=== PATIENT | male | born 1970 | race Caucasian/White ===

== ENCOUNTER 2017-02-12 21:25 | Emergency (ER) | payer OTHER ==
[~2017-02-12] VITALS: Ht 182.9 cm; Wt 120.5 kg
[~2017-02-12 21:25] MED LIST: ACP20 PO; CTP/1 PO; FLX10 PO; GABA-113 PO; GLC500 PO; RISP-32 PO; RISP1TAB68 PO
[2017-02-12 21:27] VITALS: TEMP 37.2; Ht 182.9 cm; Wt 120.5 kg
[2017-02-12 21:50] VITALS: O2SAT 97
[2017-02-12] MEDS ORDERED: KETOROLAC TROMETHAMINE 30 MG/ML VIAL IV STA (21:59)
[2017-02-12] MEDS ORDERED: SODIUM CHLORIDE 0.9% 1000ML 1,000 ML IV ONE (22:00)
[2017-02-12 22:07] LABS: BASO % 0.2 %; BASO ABS # 0.02 K/uL (0-0.2); COMPLETE YES; EOS % 4.4 %; HEMATOCRIT 43.8 % (42-52); IG% 0.1 %; LYMPH % 38.2 %; MEAN CORPUSCULAR HEMOGLOBIN 34.2 pg (25-34); MEAN CORPUSCULAR HGB CONC 34.9 g/dl (32-36); MEAN PLATELET VOLUME 10.2 fL (7.4-10.4); MONO % 6.4 %; NEUT % 50.7 %; PLATELET COUNT 190 K/uL (130-400); RED BLOOD COUNT 4.47 M/uL (4.7-6.1); WHITE BLOOD COUNT 8.38 K/uL (4.8-10.8)
[2017-02-12 22:19] LABS: PROTHROMBIN TIME (PATIENT) 10.7 SECONDS (9.0-12.0)
[2017-02-12 22:25] LABS: BUN/CREATININE RATIO 11.7 (10-20); CREATININE 0.94 mg/dl (0.60-1.40); MAGNESIUM 2.3 mg/dl (1.8-2.4); POTASSIUM 4.3 mmol/L (3.5-5.1)
[2017-02-12 22:35] LABS: ALB/GLOB RATIO 1.1 (0.9-2); THYROID STIMULATING HORMONE 2.69 uIu/ml (0.300-4.500)
[2017-02-12 22:46] LABS: CALCIUM 8.7 mg/dl (8.5-10.1)
--- NOTE | 2017-02-12 23:04 | DIAGNOSTIC IMAGING REPORT ---
CHEST 2 VIEWS ROUTINE CLINICAL HISTORY: chest pain dyspnea COMPARISON STUDY: 04/01/2012 FINDINGS: The bones soft tissues and hemidiaphragms are normal. The cardiomediastinal silhouette is normal. The lungs are clear. The pulmonary vasculature is normal. IMPRESSION: Negative chest. Electronically signed by: Shabbir Almaraz M.D. 02/12/2017 11:02 PM Dictated Date/Time: 02/12/2017 11:02 PM
[2017-02-12] MEDS ORDERED: REPA1TAB40 PO (23:06)
[2017-02-12] MEDS ORDERED: TRMCR130WC TOP (23:06)
[2017-02-12] MEDS ORDERED: ATOR10TA82 PO (23:06)
[2017-02-12] MEDS ORDERED: LOSA50TA6 PO (23:06)
[2017-02-12 23:31] LABS: URINE APPEARANCE CLEAR (CLEAR); URINE BILIRUBIN NEG (NEG); URINE COLOR YELLOW; URINE NITRITE NEG (NEG); URINE SPECIFIC GRAVITY 1.017 (1.000-1.030); UROBILINOGEN NEG (NEG); ZZUR CULT IF INDIC CLEAN CATCH NO
[2017-02-12 23:37] LABS: MANUAL MICROSCOPIC REQUIRED? NO; REVIEW REQ? NO
[2017-02-12 23:51] LABS: BENZODIAZEPINE, URINE NEG (NEG); COCAINE,URINE NEG (NEG); PHENCYCLIDINE, URINE NEG (NEG)
[2017-02-13 01:00] VITALS: BP 133/85; PULSE 60; O2SAT 97
--- NOTE | 2017-02-13 04:53 | EMERGENCY ROOM VISIT NOTE ---
History First contact with patient: 21:48 Chief Complaint: CHEST PAIN Stated Complaint: CHEST PAIN, HEADACHE, PAIN RADIATING IN LEFT ARM Nursing Triage Summary: see triage note History of Present Illness The patient is a 46 year old male who presents to the Emergency Room with complaints of left sided head pain and left-sided chest pain for the past 8 or 9 hours. The patient has had symptoms like this in the past, and had an outpatient exercise stress test one week ago that was normal. The patient has not taken anything today for his symptoms. He has had headaches in the past, but this feels different from normal. He has not taken anything over-the- counter for his symptoms. He is without shortness of breath or dyspnea on exertion. He took a nitroglycerin and aspirin at home without any relief of his symptoms. He does not have abdominal pain, lightheadedness, or dizziness. He does have some intermittent pain that radiates down his left arm, but does have a history of degenerative disc disease in his neck, and states this may be from his neck. He rates his current pain a 1/10 with episodes of stabbing pain that he rates a 9/10. Review of Systems More than 10 systems were reviewed and otherwise negative with the exception of history of present illness. Past Medical/Surgical History Medical Problems: (1) Mcwilliams's esophagus (2) Chronic back pain (3) Dyslipidemia (4) Gastroesophageal reflux disease (5) Impaired glucose tolerance (6) s/p tonsillectomy Family History No pertinent family history Social History Smoking Status: Never Smoker Drug Use: heroin Current/Historical Medications Scheduled Atorvastatin (Lipitor), 10 MG PO DAILY Losartan Potassium (Cozaar), 50 MG PO DAILY Repaglinide (Prandin), 1 MG PO AC Triamcinolone Acet (Aristocort 0.1%), 1 APPLN TOP BID Allergies Coded Allergies: Ranitidine (Verified Allergy, Unknown, 12/16/11) Tramadol (Unverified Allergy, HIVES, 03/12/12) Physical Exam Vital Signs Date Time Temp Pulse Resp B/P Pulse Ox O2 Delivery O2 Flow Rate FiO2 02/13/17 01:00 60 16 133/85 97 02/13/17 00:40 55 22 94 02/13/17 00:31 128/78 02/13/17 00:10 57 20 97 02/13/17 00:05 55 18 95 02/13/17 00:01 135/86 02/12/17 23:05 69 19 02/12/17 23:01 130/81 02/12/17 22:35 61 17 96 02/12/17 22:31 62 18 141/88 97 Room Air 02/12/17 21:50 97 Room Air 02/12/17 21:45 70 21 97 02/12/17 21:42 71 02/12/17 21:27 37.2 68 20 174/93 97 Room Air Pain Rating (0-10): 0 Physical Exam VITALS: Vitals are noted on the nurse's note and reviewed by myself. Vital signs stable. GENERAL: Well-developed, well-nourished, white male, who is in no acute distress and resting comfortably. Patient is cooperative with the examination. HEAD: Normocephalic atraumatic. EARS: External ear normal. External auditory canals clear, tympanic membranes pearly sampson without erythema or effusion bilaterally. EYES: Pupils equal round and reactive to light and accommodation. Conjunctivae without injection, sclerae without icterus. Extraocular movements intact. NOSE: Patent, turbinates without inflammation or discharge. MOUTH: Mucous membranes moist. Tonsils are not enlarged. Pharynx without erythema, blood, or exudate. Uvula midline. Airway patent. NECK: Supple without nuchal rigidity. No lymphadenopathy. No thyromegaly. Cervical spine is nontender. HEART: Regular rate and rhythm without murmurs gallops or rubs. LUNGS: Clear to auscultation bilaterally without wheezes, rales or rhonchi. No retractions or accessory muscle use. ABDOMEN: Positive normal bowel sounds x 4. Soft, nontender, without masses or organomegaly. No guarding or rebound tenderness. MUSCULOSKELETAL: No muscle atrophy, erythema, or edema noted. Full range of motion without joint tenderness in all extremities. No tenderness to palpation. Normal gait. Strength 5/5 throughout. NEURO: Patient was alert and oriented to person place and time. CN II through XII grossly intact. Medical Decision & Procedures ER Provider Diagnostic Interpretation: Preliminary Findings Only See Final Report For Complete Findings CT HEAD: No acute intracranial finding. 1.2 cm hypodensity in region of right hippocampus is similar to prior CT 11/11/07 , likely representing a cyst. Scattered white matter hypodensities, nonspecific, but overall similar to prior MRI dated 03/26/12, allowing for differences in modality. CHEST 2 VIEWS ROUTINE CLINICAL HISTORY: chest pain dyspnea COMPARISON STUDY: 04/01/2012 FINDINGS: The bones soft tissues and hemidiaphragms are normal. The cardiomediastinal silhouette is normal. The lungs are clear. The pulmonary vasculature is normal. IMPRESSION: Negative chest. Laboratory Results 02/12/17 22:00 Red Blood Count 4.47, Mean Corpuscular Volume 98.0, Mean Corpuscular Hemoglobin 34.2, Mean Corpuscular Hemoglobin Concent 34.9, Mean Platelet Volume 10.2, Neutrophils (%) (Auto) 50.7, Lymphocytes (%) (Auto) 38.2, Monocytes (%) (Auto) 6.4, Eosinophils (%) (Auto) 4.4, Basophils (%) (Auto) 0.2, Neutrophils # (Auto) 4.24, Lymphocytes # (Auto) 3.20, Monocytes # (Auto) 0.54, Eosinophils # (Auto) 0.37, Basophils # (Auto) 0.02 02/12/17 22:00 Test 02/12/17 22:00 02/12/17 23:15 02/12/17 23:20 White Blood Count 8.38 K/uL (4.8-10.8) Red Blood Count 4.47 M/uL (4.7-6.1) Hemoglobin 15.3 g/dL (14.0-18.0) Hematocrit 43.8 % (42-52) Mean Corpuscular Volume 98.0 fL (80-100) Mean Corpuscular Hemoglobin 34.2 pg (25-34) Mean Corpuscular Hemoglobin Concent 34.9 g/dl (32-36) Platelet Count 190 K/uL (130-400) Mean Platelet Volume 10.2 fL (7.4-10.4) Neutrophils (%) (Auto) 50.7 % Lymphocytes (%) (Auto) 38.2 % Monocytes (%) (Auto) 6.4 % Eosinophils (%) (Auto) 4.4 % Basophils (%) (Auto) 0.2 % Neutrophils # (Auto) 4.24 K/uL (1.4-6.5) Lymphocytes # (Auto) 3.20 K/uL (1.2-3.4) Monocytes # (Auto) 0.54 K/uL (0.11-0.59) Eosinophils # (Auto) 0.37 K/uL (0-0.5) Basophils # (Auto) 0.02 K/uL (0-0.2) RDW Standard Deviation 43.9 fL (36.4-46.3) RDW Coefficient of Variation 12.2 % (11.5-14.5) Immature Granulocyte % (Auto) 0.1 % Immature Granulocyte # (Auto) 0.01 K/uL (0.00-0.02) Prothrombin Time 10.7 SECONDS (9.0-12.0) Prothromb Time International Ratio 1.0 (0.9-1.1) Activated Partial Thromboplast Time 25.0 SECONDS (21.0-31.0) Partial Thromboplastin Ratio 1.0 Anion Gap 3.0 mmol/L (3-11) Est Creatinine Clear Calc Drug Dose 133.0 ml/min Estimated GFR () 113.0 Estimated GFR (Non- 97.5 BUN/Creatinine Ratio 11.7 (10-20) Calcium Level 8.7 mg/dl (8.5-10.1) Magnesium Level 2.3 mg/dl (1.8-2.4) Total Bilirubin 0.4 mg/dl (0.2-1) Aspartate Amino Transf (AST/SGOT) 52 U/L (15-37) Alanine Aminotransferase (ALT/SGPT) 70 U/L (12-78) Alkaline Phosphatase 126 U/L (45-117) Total Protein 7.4 gm/dl (6.4-8.2) Albumin 3.8 gm/dl (3.4-5.0) Globulin 3.6 gm/dl (2.5-4.0) Albumin/Globulin Ratio 1.1 (0.9-2) Lipase 219 U/L (73-393) Thyroid Stimulating Hormone (TSH) 2.690 uIu/ml (0.300-4.500) Urine Color YELLOW Urine Appearance CLEAR (CLEAR) Urine pH 5.0 (4.5-7.5) Urine Specific [place] 1.017 (1.000-1.030) Urine Protein NEG (NEG) Urine Glucose (UA) 3+ (NEG) Urine Ketones NEG (NEG) Urine Occult Blood NEG (NEG) Urine Nitrite NEG (NEG) Urine Bilirubin NEG (NEG) Urine Urobilinogen NEG (NEG) Urine Leukocyte Esterase NEG (NEG) Urine Opiates Screen NEG (NEG) Urine Methadone, Qualitative NEG (NEG) Urine Barbiturates NEG (NEG) Urine Phencyclidine (PCP) Level NEG (NEG) Ur Amphetamine/Methamphetamine NEG (NEG) MDMA (Ecstasy) Screen NEG (NEG) Urine Benzodiazepines Screen NEG (NEG) Urine Cocaine Metabolite NEG (NEG) Urine Marijuana (THC) NEG (NEG) Bedside Troponin I 0.000 ng/ml (0-0.045) Medications Administered Medications (Trade) Dose Ordered Sig/Kranthi Route Start Time Stop Time Status Last Admin Dose Admin Sodium Chloride (Nss 1000ml) 1,000 ml @ 999 mls/hr Q1H1M ONCE IV 02/12/17 22:00 02/12/17 23:00 DC 02/12/17 22:24 999 MLS/HR Ketorolac Tromethamine (Toradol Inj) 30 mg NOW STAT IV 02/12/17 21:59 02/12/17 22:01 DC 02/12/17 22:24 30 MG ED Course Physical exam and history were performed. Nursing notes and EMR were reviewed. Patient appears to have left-sided head pain and left-sided chest pain for the past several hours. The patient does not appear toxic on examination. EKG does not show acute ST elevation and was normal sinus rhythm. IV access was established and labs were obtained. The patient was hydrated with normal saline and given IV Toradol for comfort. The patient's blood work is as above and was reviewed. He does not have his inability elevated white blood cell count, gross anemia, bandemia, or significant electrolyte imbalance. Lipase and transaminases are nondiagnostic. Troponin x2 and d-dimer 1 are both negative. Chest x-ray is without significant acute findings. Because of his atypical head pain symptoms I did elect to perform CT scan of his head, which was also without acute intracranial finding. The patient was reevaluated multiple times throughout the course of his stay and did have improvement of his discomfort after hydration and Toradol. I suspect the patient's discomfort is musculoskeletal in nature, as he does have a history of cervical disc disease. He does not appear to have an acute cardiopulmonary event, and is overall felt to be stable for discharge home. He will need close follow-up by his primary care physician and was invited back to the emergency department with any new, worsening, or concerning symptoms. The chart was completed utilizing [employer] Speech Voice Recognition Software. Grammatical errors, random word insertions, pronoun errors, and incomplete sentences are an occasional consequence of this system due to software limitations, ambient noise, and hardware issues. Any formal questions or concerns about the content, text, or information contained within the body of this dictation should be directly addressed to the provider for clarification. . Medical Decision Differential diagnosis includes, but is not limited to: Myocardial infarction, dysrhythmia, pericarditis, pneumothorax, aortic aneurysm/dissection, DVT/PE, anxiety, GERD, PUD, electrolyte imbalance, thyroid disorder, pneumonia, bronchitis, pancreatitis, and others Impression Primary Impression: Chest pain of unknown etiology Additional Impression: Head pain Departure Information Dispostion Home / Self-Care Condition [employer]IR Forms HOME CARE DOCUMENTATION FORM, IMPORTANT VISIT INFORMATION Patient Instructions [facility] Additional Instructions You were seen and evaluated today on an emergency basis only. This is not a substitute for, or an effort to provide, complete comprehensive medical care. It is not possible to recognize and treat all injuries or illnesses in a single emergency department visit. For this reason it is recommended that you followup with your primary care physician next week as scheduled for ongoing care and evaluation. Continue your current medications. For baseline pain relief you may alternate ibuprofen and acetaminophen every 4 hours for pain control. Take 600 mg ibuprofen (Advil) and then 4 hours later take 1000 mg acetaminophen (Tylenol). Do not take more than 3000 mg acetaminophen in a single day. Drink plenty of fluids and remain well hydrated. You are welcome to return to the emergency department anytime with new, worsening, or concerning symptoms. Problem Qualifiers
--- NOTE | 2017-02-13 06:50 | DIAGNOSTIC IMAGING REPORT ---
CT OF THE HEAD WITHOUT CONTRAST CLINICAL HISTORY: Left sided head pain. COMPARISON STUDY: Head CT November 11, 2007 and MRI of the brain March 26, 2012. CT DOSE: 537.48 mGy.cm TECHNIQUE: Helical axial images of the head were obtained without IV contrast. Automated exposure control was utilized for the study. FINDINGS: No acute intracranial hemorrhage, midline shift or mass effect is present. Ventricular system is normal. Basilar cisterns are patent. There are no extra-axial collections. Scott-white differentiation is maintained. There are no findings to suggest acute dural sinus thrombosis or acute territorial infarct. A 1.4 cm CSF attenuation density within the medial right temporal lobe is unchanged since earlier exams. This likely reflects a cyst. No calvarial abnormalities are present. Visualized portions of the sinuses and mastoid air cells are clear. IMPRESSION: No acute intracranial findings. No change since prior exam. Electronically signed by: Siva Haynes M.D. 02/13/2017 6:49 AM Dictated Date/Time: 02/13/2017 6:47 AM
== END 2017-02-13 01:00 | disposition home or self-care (01) ==
LOC: C.EDB 21:26 → C.EDA 02-13 01:00
DX: R07.9 Chest pain, unspecified (principal); R51 Headache; K22.70 Barrett's esophagus without dysplasia; E78.5 Hyperlipidemia, unspecified; K21.9 Gastro-esophageal reflux disease without esophagitis; R73.02 Impaired glucose tolerance (oral); M54.9 Dorsalgia, unspecified; G89.29 Other chronic pain; F11.90 Opioid use, unspecified, uncomplicated; Z79.899 Other long term (current) drug therapy

== ENCOUNTER 2017-08-20 17:24 | Emergency (ER) | payer OTHER ==
[~2017-08-20] VITALS: Ht 182.9 cm; Wt 120.0 kg
[~2017-08-20 17:24] MED LIST changes: -ACP20 PO; +ATOR10TA82 PO; -CTP/1 PO; -FLX10 PO; -GABA-113 PO; -GLC500 PO; +LOSA50TA6 PO; +REPA1TAB40 PO; -RISP-32 PO; -RISP1TAB68 PO; +TRMCR130WC TOP
[2017-08-20 17:27] VITALS: TEMP 37.1; Ht 182.9 cm; Wt 120.0 kg
[2017-08-20] MEDS ORDERED: METOCLOPRAMIDE HCL INJ 5 MG/ML 2 ML VIAL IV STA (18:43)
[2017-08-20] MEDS ORDERED: ACETAMINOPHEN 500 MG TAB PO STA (18:43)
[2017-08-20] MEDS ORDERED: DiphenhydrAMINE HCL 50 MG/ML VIAL IV STA (18:43)
--- NOTE | 2017-08-20 19:09 | DIAGNOSTIC IMAGING REPORT ---
CHEST ONE VIEW PORTABLE CLINICAL HISTORY: 46 years-old Male presenting with ABDOMINAL PAIN/GI. TECHNIQUE: Portable upright AP view of the chest was obtained. COMPARISON: 02/12/2017. FINDINGS: Cardiomediastinal silhouette normal. Lungs and pleural spaces clear. Osseous structures normal. Upper abdomen normal. IMPRESSION: 1. No acute cardiopulmonary disease. Electronically signed by: Danilo Maier M.D. 08/20/2017 7:08 PM Dictated Date/Time: 08/20/2017 7:07 PM
[2017-08-20 19:25] LABS: BASO % 0.3 %; BASO ABS # 0.03 K/uL (0-0.2); COMPLETE YES; EOS % 3.9 %; HEMATOCRIT 44.7 % (42-52); IG% 0.5 %; LYMPH % 32.1 %; LYMPH ABS # 3.02 K/uL (1.2-3.4); MEAN CELL VOLUME 94.9 fL (80-100); MEAN CORPUSCULAR HEMOGLOBIN 34.8 pg (25-34); MEAN CORPUSCULAR HGB CONC 36.7 g/dl (32-36); MEAN PLATELET VOLUME 10.4 fL (7.4-10.4); MONO % 6.5 %; NEUT % 56.7 %; PLATELET COUNT 197 K/uL (130-400); RED BLOOD COUNT 4.71 M/uL (4.7-6.1); WHITE BLOOD COUNT 9.42 K/uL (4.8-10.8)
--- NOTE | 2017-08-20 19:39 | EMERGENCY ROOM VISIT NOTE ---
History Report prepared by Lorelei: Azucena Chapa Under the Supervision of: Dr. Mikel Rosales M.D. First contact with patient: 18:06 Chief Complaint: DIZZY Stated Complaint: DIZZINESS, LIGHT HEADED, PAIN IN HEAD AND NECK Nursing Triage Summary: Dizzy and lightheaded since , found lump in his neck on his left side "it has a pulse in it". Getting headaches and has burning in left arm. History of Present Illness The patient is a 46 year old white male with a past medical history of hypertension, appendectomy, high cholesterol, arachnoid cysts, and neck surgery who presents to the ED with a cc of a lump in his neck beginning 3 days ago. The patient states that he felt a lump in the left side of his neck that has a pulse and is burning. He notes that he has been feeling dizzy. Positive left arm burning and headaches. Negative cough, sore throat, chills, fever, leg pain , leg swelling. Source of History: patient Onset: 3 days ago Position: neck Quality: other (lump) Timing: constant Associated Symptoms: + headache, No fevers, No chills, No sorethroat, No cough Note: Pt has dizziness and left arm burning. Denies leg pain and swelling. Review of Systems See HPI for pertinent positives and negatives. A total of ten systems were reviewed and were otherwise negative. Past Medical & Surgical Medical Problems: (1) Mcwilliams's esophagus (2) Chronic back pain (3) Dyslipidemia (4) Gastroesophageal reflux disease (5) Impaired glucose tolerance (6) s/p tonsillectomy Family History No pertinent family history stated. Social History Smoking Status: Current Every Day Smoker Drug Use: heroin Marital Status: single Occupation Status: employed Current/Historical Medications No Active Prescriptions or Reported Meds Allergies Coded Allergies: Ranitidine (Verified Allergy, Unknown, 12/16/11) Tramadol (Unverified Allergy, HIVES, 03/12/12) Physical Exam Vital Signs Date Time Temp Pulse Resp B/P (MAP) Pulse Ox O2 Delivery O2 Flow Rate FiO2 08/20/17 20:40 88 16 137/76 98 Room Air 08/20/17 19:17 68 16 141/81 98 Room Air 08/20/17 18:02 84 08/20/17 18:02 81 16 167/101 88 178/109 91 167/111 08/20/17 17:27 37.1 85 18 164/114 97 Room Air Physical Exam GENERAL: Awake, alert, well-appearing, NAD HENT: Normocephalic, atraumatic. Redness and exudate in right posterior oropharynx, no swelling or deviation. EYES: Normal conjunctiva. Sclera non-icteric. NECK: Supple. No nuchal rigidity. FROM. He has a palpable nodule in the left lateral neck, no erythema, no calor. No stridor RESPIRATORY: CTAB, no rhonchi, wheezing, crackles CARDIAC: RRR, no MRG ABDOMEN: Soft, NTND, BS+ MSK: No chest wall TTP, no LE edema NEURO: GCS 15, CN 2-12 intact, moves all 4s on command SKIN: No rash or jaundice noted. Medical Decision & Procedures ER Provider Diagnostic Interpretation: Radiology results as stated below per my review and radiologist interpretation: HEAD WITHOUT CONTRAST (CT) FINDINGS: Interior Design Instructor topogram: Unremarkable. Ventricles and sulci normal in size. 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 Brain parenchyma normal in appearance with preserved sampson-white differentiation. No mass effect or midline shift. No hemorrhage or acute territorial infarct. No extra-axial fluid collection. Paranasal sinuses and mastoid air cells clear. Calvarium intact. IMPRESSION: 1. No acute intracranial abnormality. Electronically signed by: Danilo Maier M.D. 08/20/2017 7:49 PM Dictated Date/Time: 08/20/2017 7:46 PM CHEST ONE VIEW PORTABLE FINDINGS: Cardiomediastinal silhouette normal. Lungs and pleural spaces clear. Osseous structures normal. Upper abdomen normal. IMPRESSION: 1. No acute cardiopulmonary disease. Electronically signed by: Danilo Maier M.D. 08/20/2017 7:08 PM Dictated Date/Time: 08/20/2017 7:07 PM Laboratory Results 08/20/17 18:58 Red Blood Count 4.71, Mean Corpuscular Volume 94.9, Mean Corpuscular Hemoglobin 34.8, Mean Corpuscular Hemoglobin Concent 36.7, Mean Platelet Volume 10.4, Neutrophils (%) (Auto) 56.7, Lymphocytes (%) (Auto) 32.1, Monocytes (%) (Auto) 6.5, Eosinophils (%) (Auto) 3.9, Basophils (%) (Auto) 0.3, Neutrophils # (Auto) 5.34, Lymphocytes # (Auto) 3.02, Monocytes # (Auto) 0.61, Eosinophils # (Auto) 0.37, Basophils # (Auto) 0.03 08/20/17 18:58 Test 08/20/17 18:58 08/20/17 19:54 White Blood Count 9.42 K/uL (4.8-10.8) Red Blood Count 4.71 M/uL (4.7-6.1) Hemoglobin 16.4 g/dL (14.0-18.0) Hematocrit 44.7 % (42-52) Mean Corpuscular Volume 94.9 fL (80-100) Mean Corpuscular Hemoglobin 34.8 pg (25-34) Mean Corpuscular Hemoglobin Concent 36.7 g/dl (32-36) Platelet Count 197 K/uL (130-400) Mean Platelet Volume 10.4 fL (7.4-10.4) Neutrophils (%) (Auto) 56.7 % Lymphocytes (%) (Auto) 32.1 % Monocytes (%) (Auto) 6.5 % Eosinophils (%) (Auto) 3.9 % Basophils (%) (Auto) 0.3 % Neutrophils # (Auto) 5.34 K/uL (1.4-6.5) Lymphocytes # (Auto) 3.02 K/uL (1.2-3.4) Monocytes # (Auto) 0.61 K/uL (0.11-0.59) Eosinophils # (Auto) 0.37 K/uL (0-0.5) Basophils # (Auto) 0.03 K/uL (0-0.2) RDW Standard Deviation 41.4 fL (36.4-46.3) RDW Coefficient of Variation 12.0 % (11.5-14.5) Immature Granulocyte % (Auto) 0.5 % Immature Granulocyte # (Auto) 0.05 K/uL (0.00-0.02) Anion Gap 5.0 mmol/L (3-11) Est Creatinine Clear Calc Drug Dose 156.0 ml/min Estimated GFR () 125.0 Estimated GFR (Non- 107.9 BUN/Creatinine Ratio 11.2 (10-20) Calcium Level 8.8 mg/dl (8.5-10.1) Total Bilirubin 0.5 mg/dl (0.2-1) Direct Bilirubin 0.1 mg/dl (0-0.2) Aspartate Amino Transf (AST/SGOT) 60 U/L (15-37) Alanine Aminotransferase (ALT/SGPT) 73 U/L (12-78) Alkaline Phosphatase 151 U/L (45-117) Troponin I < 0.015 ng/ml (0-0.045) Total Protein 7.8 gm/dl (6.4-8.2) Albumin 4.0 gm/dl (3.4-5.0) Lipase 257 U/L (73-393) Urine Color YELLOW Urine Appearance CLEAR (CLEAR) Urine pH 5.0 (4.5-7.5) Urine Specific [place] 1.016 (1.000-1.030) Urine Protein NEG (NEG) Urine Glucose (UA) 2+ (NEG) Urine Ketones NEG (NEG) Urine Occult Blood NEG (NEG) Urine Nitrite NEG (NEG) Urine Bilirubin NEG (NEG) Urine Urobilinogen NEG (NEG) Urine Leukocyte Esterase NEG (NEG) Laboratory results reviewed by me Medications Administered Medications (Trade) Dose Ordered Sig/Kranthi Route Start Time Stop Time Status Last Admin Dose Admin Acetaminophen (Tylenol Tab) 1,000 mg NOW STAT PO 08/20/17 18:43 08/20/17 18:45 DC 08/20/17 19:22 1,000 MG Diphenhydramine HCl (Benadryl Inj) 25 mg NOW STAT IV 08/20/17 18:43 08/20/17 18:45 DC 08/20/17 19:22 25 MG Metoclopramide HCl (Reglan Inj) 10 mg NOW STAT IV 08/20/17 18:43 08/20/17 18:46 DC 08/20/17 19:22 10 MG ECG Indication: other (dizzy) Rate (beats per minute): 83 Rhythm: normal sinus Findings: other (normal intervals, normal axis, no STS or TWI) ED Course 1805: The patient was evaluated in room C4. A complete history and physical exam was performed. 2002: I reevaluated and updated the patient. I performed an ultrasound. 2024: I reevaluated the patient. Discussed results and discharge instructions: He verbalized understanding and agreement. The patient is ready for discharge. Medical Decision Triage Nursing notes reviewed. The patient's presentation and history were concerning for lymphadenitis, mono, flu, reactive lymphadenopathy, ICH, mass, dehydration. The patient is a 46 year old white male with a past medical history of hypertension, appendectomy, high cholesterol, arachnoid cysts, and neck surgery who presents to the ED with a cc of a lump in his neck beginning 3 days ago Patient was seen and evaluated at the bedside. Patient did present with multiple complaints. Patient's history was concerned about a lump in his left neck. Patient states he had no shortness of breath. Patient also was complaining of some mild headache and dizziness. Patient was concerned as he had prior history of arachnoid cysts is most recent MRI being completed 5 years prior. On exam the patient had a normal neurologic exam. Patient's dizziness was described as lightheadedness and he typically stated this was positional as he would be going from a laying down to a seated position or seated to standing position. Patient denied any syncope. Patient was given medications for his headache did have a CT scan of the head as well as a chest x-ray was performed along with blood work. Patient's blood work was fairly unremarkable with the exception of some mildly elevated blood glucose and AST. UA neg for blood or infection. Patient denies any abdominal pain. Patient did have a history of smoking was given counseling on smoking cessation. I did do a bedside ultrasound of this small bump in the left neck. This appeared to be a lymph node. Did not have enhancement consistent with fluid or air. No overlying erythema or callor. No prior history of cancers. Discussed that the patient could wash in the be related to some URI-type symptoms. Patient's headache had improved. Patient was able tolerate by mouth. Patient was deemed suitable for outpatient follow-up and treatment. Patient was given strict follow-up, discharge, and return precautions. All questions were answered. Patient was deemed suitable for outpatient follow-up at this time. Patient agreed with the plan of care and was safely discharged home. Impression Primary Impression: Lightheaded Additional Impressions: Headache Lymphadenitis Encounter for smoking cessation counseling Scribe Attestation The scribe's documentation has been prepared under my direction and personally reviewed by me in its entirety. I confirm that the note above accurately reflects all work, treatment, procedures, and medical decision making performed by me. Departure Information Dispostion Home / Self-Care Prescriptions No Active Prescriptions or Reported Meds Referrals Chantal Barton M.D. (PCP) Patient Instructions ED Dizziness [facility], Headache Pain, My [facility] Additional Instructions Please return to the emergency department if you have worsening or recurrent symptoms not amenable to at-home treatment. Please call for a follow-up appointment with her primary care physician. Please take your medications as prescribed. If you have other concerns and/or complaints please feel free to also call your primary care physician's office or return the ED for further evaluation, management, and treatment. You may take 600 mg Ibuprofen every 6 hours as needed for pain with food for no more than 2 consecutive days. You may take tylenol 1000 mg every 6 hours as needed for pain. You may take motrin and tylenol separately or at the same time. Take your medications as prescribed. You have been examined and treated today on an emergency basis only. This is not a substitute for, or an effort to provide, complete comprehensive medical care. It is impossible to recognize and treat all injuries or illnesses in a single emergency department visit. It is therefore important that you follow up closely with [facility], your PCP, and/or your specialist(s). Call as soon as possible for an appointment. Thank you for your time and consideration. I look forward to speaking with you again soon. Please don't hesitate to call us if you have any questions. Problem Qualifiers Additional Impressions: Headache Headache type: unspecified Headache chronicity pattern: acute headache Intractability: not intractable Qualified Codes: R51 - Headache
[2017-08-20 19:47] LABS: ALT/SGPT 73 U/L (12-78); AST/SGOT 60 U/L (15-37); BLOOD UREA NITROGEN 9 mg/dl (7-18); BUN/CREATININE RATIO 11.2 (10-20); CALCIUM 8.8 mg/dl (8.5-10.1); CARBON DIOXIDE 30 mmol/L (21-32); CHLORIDE 100 mmol/L (98-107); GLUCOSE 211 mg/dl (70-99); POTASSIUM 3.5 mmol/L (3.5-5.1); SODIUM 135 mmol/L (136-145)
--- NOTE | 2017-08-20 19:50 | DIAGNOSTIC IMAGING REPORT ---
HEAD WITHOUT CONTRAST (CT) CLINICAL HISTORY: 46 years-old Male presenting with ?h/o arachnoid cysts, dizzy, lightheaded. TECHNIQUE: Multidetector CT imaging of the head was performed without the use of intravenous contrast. IV contrast: None. A dose lowering technique was used consistent with the principles of ALARA (as low as reasonably achievable). COMPARISON: 02/12/2017. CT DOSE (mGy.cm): The estimated cumulative dose is 700.35 mGycm. FINDINGS: Shucker topogram: Unremarkable. Ventricles and sulci normal in size. 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 Brain parenchyma normal in appearance with preserved sampson-white differentiation. No mass effect or midline shift. No hemorrhage or acute territorial infarct. No extra-axial fluid collection. Paranasal sinuses and mastoid air cells clear. Calvarium intact. IMPRESSION: 1. No acute intracranial abnormality. Electronically signed by: Danilo Maier M.D. 08/20/2017 7:49 PM Dictated Date/Time: 08/20/2017 7:46 PM
[2017-08-20 19:52] LABS: ALKALINE PHOSPHATASE 151 U/L (45-117)
[2017-08-20 20:16] LABS: URINE APPEARANCE CLEAR (CLEAR); URINE BILIRUBIN NEG (NEG); URINE COLOR YELLOW; URINE NITRITE NEG (NEG); URINE SPECIFIC GRAVITY 1.016 (1.000-1.030); UROBILINOGEN NEG (NEG); ZZUR CULT IF INDIC CLEAN CATCH NO
[2017-08-20 20:18] LABS: MANUAL MICROSCOPIC REQUIRED? NO; REVIEW REQ? NO
[2017-08-20 20:40] VITALS: BP 137/76; PULSE 88; O2SAT 98
== END 2017-08-20 21:01 | disposition home or self-care (01) ==
LOC: C.EDB 17:26 → C.EDC 21:01
DX: R42 Dizziness and giddiness (principal); R51 Headache; I88.9 Nonspecific lymphadenitis, unspecified; Z71.6 Tobacco abuse counseling; F17.200 Nicotine dependence, unspecified, uncomplicated; I10 Essential (primary) hypertension; E78.00 Pure hypercholesterolemia, unspecified; M54.9 Dorsalgia, unspecified; G89.29 Other chronic pain; F11.90 Opioid use, unspecified, uncomplicated; Z90.89 Acquired absence of other organs

== ENCOUNTER 2019-10-21 16:17 | Inpatient (IN) ==
[2019-10-21 18:48] LABS: Basophils # (auto) 0.02 K/uL (0-0.2); Basophils % (auto) 0.2 %; Eosinophils # (auto) 0.24 K/uL (0-0.5); Eosinophils % (auto) 2.3 %; Hematocrit (blood only) 44.1 % (42-52); Hemoglobin 15.8 g/dL (14.0-18.0); Immature Granulocytes # (auto) 0.03 K/uL (0.00-0.02); Immature Granulocytes % (auto) 0.3 %; Lymphocytes % (auto) 32.4 %; Mean Corpuscular Hemoglobin 33.8 pg (25-34); Mean Corpuscular Hgb Conc 35.8 g/dL (32-36); Mean Corpuscular Volume 94.4 fL (80-100); Mean Platelet Volume 9.9 fL (7.4-10.4); Monocytes # (auto) 0.74 K/uL (0.11-0.59); Neutrophils # (auto) 6.08 K/uL (1.4-6.5); Neutrophils % (auto) 57.8 %; Platelet Count 200 K/uL (130-400); RDW Coefficient of Variation 12.2 % (11.5-14.5); RDW Standard Deviation 41.3 fL (36.4-46.3); Red Blood Count 4.67 M/uL (4.7-6.1); White Blood Count 10.51 K/uL (4.8-10.8)
[2019-10-21 18:49] LABS: Appearance Urine Clear (Clear); Bilirubin Urine Negative (Negative); Blood Urine Negative (Negative); Color Urine Yellow; Glucose Urine UA Negative (Negative); Ketones Urine Negative (Negative); Leukocyte Esterase Urine Negative (Negative); Nitrite Urine Negative (Negative); Protein Urine Negative (Negative); Specific Gravity Urine 1.006 (1.000-1.030); Urobilinogen Urine Negative (Negative); pH Urine 6.5 (4.5-7.5)
[2019-10-21 19:05] LABS: Alanine Aminotransferase 76 U/L (12-78); Albumin Level 3.9 gm/dl (3.4-5.0); Aspartate Aminotransferase 62 U/L (15-37); BUN Creatinine Ratio 10.6 (10-20); Blood Urea Nitrogen 8 mg/dl (7-18); Calcium 9.2 mg/dl (8.5-10.1); Carbon Dioxide 31 mmol/L (21-32); Chloride 101 mmol/L (98-107); Creatinine Clr Calc Pharmacy 155.3 ml/min; Est GFR (African American) 124.6; Est GFR (Non-African American) 107.5; Glucose 111 mg/dl (70-99); Lipase 501 U/L (73-393); Potassium 4.1 mmol/L (3.5-5.1); Sodium 137 mmol/L (136-145)
[2019-10-21] MEDS ORDERED: MoRPHine SULFATE 4 MG/ML 1 ML CARP\\VIAL IV STA (19:09)
[2019-10-21] MEDS ORDERED: ONDANSETRON INJ 2 MG/ML 2 ML VIAL IV STA (19:09)
[2019-10-21 19:10] LABS: Albumin Globulin Ratio 0.9 (0.9-2); Alkaline Phosphatase 154 U/L (45-117); Bilirubin,Total 0.7 mg/dl (0.2-1); Globulin 4.5 gm/dl (2.5-4.0); Total Protein 8.4 gm/dl (6.4-8.2); Troponin I < 0.015 ng/ml (0-0.045)
[2019-10-21] MEDS ORDERED: IOVERSOL 100ml IV PRN (19:51)
--- NOTE | 2019-10-21 20:01 | CT Scan Report ---
CT abd pelvis IV con only CT DOSE: 1451.36 mGy.cm HISTORY: Pain LUQ, RUQ and epigastric abdominal pain TECHNIQUE: Multiaxial CT images of the abdomen and pelvis were performed following the use of intrave nous contrast. A dose lowering technique was utilized adhering to the principles of ALARA. COMPARISON STUDY: 11/07/2018 FINDINGS: Lung bases are clear. Fatty replacement of the liver. Several gallstones are present. Kidne ys enhance uniformly. No evidence for hydronephrosis. Bowel pattern is nonobstructive. The appendix is suboptimally seen L there is no evidence for an infl ammatory process of the right lower quadrant. Bladder is midline. There is no free fluid within the pelvic cul-de-sac. IMPRESSION: 1. Gallstones. 2. Fatty replacement of the liver. 3. Otherwise negative study abdomen and pelvis. ACT 112: Negative or not required by law. The above report was generated using voice recognition software. It may contain grammatical, syntax or spelling errors. Electronically signed by: Shabbir Almaraz M.D. 10/21/2019 8:00 PM
[2019-10-21] MEDS ORDERED: SODIUM CHLORIDE 0.9% 1000ML 1,000 ML IV ONE (20:12)
[2019-10-21] MEDS ORDERED: MoRPHine SULFATE 2 MG/ML CARP IV STA (20:19)
[2019-10-21] MEDS ORDERED: HYDROmorphone INJ 0.5 MG/0.5 ML SYR IV PRN (22:27)
[2019-10-21] MEDS ORDERED: ACETAMINOPHEN 325 MG TAB PO PRN (22:27)
[2019-10-21] MEDS: LACTATED RINGER'S 1,000 ML IV SCH (22:43)
[2019-10-21] MEDS ORDERED: GLUCAGON FOR INJ 1 MG VIAL SQ PRN (22:55)
[2019-10-21] MEDS ORDERED: DEXTROSE 50% 50 ML SYRINGE IV PRN (22:55)
[2019-10-21] MEDS ORDERED: GLUCOSE 40% GEL 15 GM TUBE PO PRN (22:55)
[2019-10-21] MEDS ORDERED: GLUCOSE 10 TABS/TUBE PO PRN (22:55)
[2019-10-21] MEDS ORDERED: CARBOHYDRATES FOR HYPOGLYCEMIA PO PRN (22:55)
--- NOTE | 2019-10-21 23:10 | History & Physical Report ---
Date of Service October 21, 2019 Assessment & Plan (1) Abdominal pain: -Admit to [facility] -Patient presenting from home for evaluation of abdominal pain has been ongoing and worsening for the past 2 months -Review of prior labs show patient has had mildly elevated LFTs over the past few months -In the ED today, AST and alk phos mildly elevated with normal total bili and ALT; lipase mildly elevated 501 -CT ABD/pelvis showing gallstones -Given gallstones on CT ABD/pelvis, ? Choledocholithiasis vs gallstone pancreatitis vs biliary colic -No signs of acute cholecystitis -MRCP -N.p.o., IVF, pain and nausea control -Noted the patient is on Tradjenta (however not a new medication), that could possibly be contributing to some mild pancreatitis as well -GI consult, input appreciated (2) DM type 2 (diabetes mellitus, type 2): -Hgb A1c 7.1 10/06/2019 -Hold oral agents and utilize NovoLog per protocol while hospitalized (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 -Continue PPI (4) Hypertension: -Hold HCTZ while receiving IVF -BP currently controlled (5) Dyslipidemia: -Hold statin due to mildly elevated LFTs (6) DVT prophylaxis: -SCDs, ambulate History of Present Illness Chief Complaint: Abdominal pain Primary Care Provider: Chantal Barton MD 48-year-old male who presents the ED for evaluation abdominal pain. Patient reports ongoing abdominal pain for the past 2 months. Pain has been progressively worsening. Reports pain was initially located in the epigastric area however has been radiating out to the right upper and left upper quadrants. Patient also now has some pinpoint tenderness along the left side of the abdomen. Patient denies any specific causative relieving factors. Pain does not seem to be made worse after eating. He denies any associated nausea, vomiting, diarrhea. No fevers or chills. Denies chest pain shortness of breath. Reports intermittent episodes of lightheadedness however no dizziness or syncopal event. He denies any urinary symptoms. Patient has been noted to have mildly elevated LFTs recently. Labs were obtained as an outpatient today that showed mildly elevated LFTs as well as lipase. Right upper quadrant ultrasound was obtained, results are not yet available. Due to worsening pain, patient presented to the ED for further evaluation. In the ED, patient is found to have elevated AST and alk phos with normal total bili and ALT. Lipase mildly elevated at 501. CT ABD/pelvis showing gallstones and fatty liver. Patient is hemodynamically stable. He was given 2 doses of IV morphine, IV Zofran, IVF. Allergies Allergy/AdvReac Type Severity Reaction Status Date / Time metformin Allergy Severe states Verified 10/21/19 20:59 drops his blood sugar very low lisinopril Allergy Intermediate Hives Verified 10/21/19 20:59 ranitidine Allergy Unknown Unknown Verified 10/21/19 20:59 losartan Allergy Hives Verified 10/21/19 20:59 tramadol Allergy HIVES Unverified 10/21/19 20:59 Home Medications Home Medications Medication Instructions Recorded Confirmed Type atorvastatin 10 mg PO DAILY 08/09/19 10/21/19 History glimepiride 2 mg PO DAILY 08/09/19 10/21/19 History hydrochlorothiazide 12.5 mg PO DAILY 08/09/19 10/21/19 History bisacodyl [Dulcolax (bisacodyl)] 5 mg PO DAILY PRN 10/21/19 10/21/19 History linagliptin [Tradjenta] 5 mg PO DAILY 10/21/19 10/21/19 History omeprazole 20 mg PO QAM 10/21/19 10/21/19 History oxycodone 5 mg PO Q6H PRN 10/21/19 10/21/19 History repaglinide 1 mg PO TIDM 10/21/19 10/21/19 History Past Med/Surg History Medical History Mcwilliams esophagus Chronic back pain Degenerative disc disease DM type 2 (diabetes mellitus, type 2) Dyslipidemia Fatty liver GERD (gastroesophageal reflux disease) Hypertension Osteoarthritis Tinnitus Surgical History History of adenoidectomy History of appendectomy History of colonoscopy History of esophagogastroduodenoscopy (EGD) History of tonsillectomy Hx of neck surgery c5- c6 fusion > full ROM Family History Grandfather (Maternal) Esophageal cancer Social History Preferred Language: Upper Sorbian Communication Ability: Effective Msws Required: No Beliefs That Will Affect Care: None Current Living Situation: Significant Other Feels Safe at Home: Yes Smoking Status: Current every day smoker Tobacco Type: cigarettes ; Cigarettes Per Day: 1ppd ; Second Hand Exposure: Yes ; Hx Alcohol Use: No Hx Substance Use: No Review of Systems Review of Systems: ROS per HPI, all other systems reviewed and negative Physical Exam Constitutional: WD/WN, vitals as above Eyes: PERRL, conjunctivae normal, anicteric sclerae ENMT: external ear and nose normal, oropharynx normal Respiratory: normal respiratory effort, lungs clear to auscultation Cardiovascular: Rate/Rhythm: regular rate and regular rhythm Vessels: normal peripheral pulses Extremities: no edema Gastrointestinal (Abdomen): Inspection/Auscultation: normal bowel sounds Percussion/Palpation: + abdomen tender (Left lateral mid abdomen, Epigastric) and abdomen soft; no hepatosplenomegaly Musculoskeletal: no cyanosis or clubbing, extremities motor strength 5/5 Skin: no rashes, warm and dry Neurologic: PERRL, EOMI, accommodation nl, no face palsy, no dysarthria Psychiatric: A+Ox3, euthymic affect Results & Data Vital Signs (Past 12 Hours) Vital Signs Temp Pulse Pulse Resp BP BP Pulse Ox 10/21/19 22:27 36.7 C 72 16 148/73 H 97 10/21/19 22:25 67 20 138/80 99 10/21/19 21:00 67 19 93 10/21/19 20:01 63 18 94 10/21/19 20:00 65 19 137/86 95 10/21/19 19:33 63 67 12 120/83 120/83 96 10/21/19 19:31 74 19 137/87 94 10/21/19 19:00 69 14 96 10/21/19 18:45 65 11 L 10/21/19 18:28 68 98 10/21/19 18:21 64 81 13 158/122 H 158/122 H 99 10/21/19 16:33 36.9 C 83 20 171/106 H 97 Laboratory Results Short CBC 10/21/19 Range/Units 18:37 WBC 10.51 (4.8-10.8) K/uL Hgb 15.8 (14.0-18.0) g/dL Hct 44.1 (42-52) % Plt Count 200 (130-400) K/uL BMP 10/21/19 18:37 Sodium 137 Potassium 4.1 Chloride 101 Carbon Dioxide 31 BUN 8 Creatinine 0.78 Glucose 111 H Calcium 9.2 Cardiac Enzymes 10/21/19 Range/Units 18:37 Troponin I < 0.015 (0-0.045) ng/ml Liver Function 10/21/19 Range/Units 18:37 Total Bilirubin 0.7 (0.2-1) mg/dl AST 62 H (15-37) U/L ALT 76 (12-78) U/L Alkaline Phosphatase 154 H (45-117) U/L Albumin 3.9 (3.4-5.0) gm/dl Urine 10/21/19 Range/Units 18:37 Urine Color Yellow Urine Appearance Clear (Clear) Urine pH 6.5 (4.5-7.5) Ur Specific [place] 1.006 (1.000-1.030) Urine Protein Negative (Negative) Urine Glucose (UA) Negative (Negative) Diagnostic Findings CT ABD/PELVIS IMPRESSION: 1. Gallstones. 2. Fatty replacement of the liver. 3. Otherwise negative study abdomen and pelvis. Code Status & VTE Plan VTE Prophylaxis Plan VTE Prophylaxis will be ordered: Yes Supervising Physician Co-Signing Physician Notes 48-year-old man who presented to the ER for abdominal pain. History and physical exam obtained by tn Detailed history as documented by Melodie FRASER. History notable for recurrent episodes of abdominal pain over the past 2 months, both in the right and left upper quadrant, worsening recently, smokes about 1 pack/day. Denied alcohol use Physical exam notable for epigastric, right upper and left upper quadrant tenderness. Lipase of 501 Alk phos of 154 AST of [address] A/P FINDINGS: Lung bases are clear. Fatty replacement of the liver. Several gallstones are present. Kidneys enhance uniformly. No evidence for hydronephrosis. Bowel pattern is nonobstructive. The appendix is suboptimally seen L there is no evidence for an inflammatory process of the right lower quadrant. Bladder is midline. There is no free fluid within the pelvic cul-de-sac. IMPRESSION: 1. Gallstones. 2. Fatty replacement of the liver. 3. Otherwise negative study abdomen and pelvis. Abdominal pain Elevated Lipase (though less than 3x ULN) Will manage as pancreatitis CT A/P show gall stones Get MRCP Keep NPO IVF for now Pain control GI consult Hold tradjenta which was also recently started and can cause elevated lipase Other plans as detailed above
--- NOTE | 2019-10-21 23:44 | Emergency Department Note ---
Entered by Emilia Barrett acting as a scribe for Juan Carlos Akbar MD History of Present Illness General Chief complaint: Abdominal Pain Stated complaint: ABD PAIN Time Seen by Provider: 10/21/19 17:59 Source: patient History of Present Illness Onset (ago): month(s) (2) Location: abdomen Pain Consistency: + other (worsening) Quality: + sharp Associated symptoms: + denies other symptoms (blood in urine and stools) and + other (lightheadednesss, weight gain) The patient is a 48 year old male who presents to the Emergency Room with complaints of worsening sharp upper abdominal pain beginning 2 months ago. The patient reports lightheadedness and recent weight gain. He denies blood in his urine and stools. The patient reports his PCP did blood work which showed a slightly elevated white blood count so he was told to come to the ER. The patient reports a history of liver failure. He denies alcohol use. He reports a history of jaundice and mono as a kid. He notes a recent negative endoscopy. He notes taking antacids daily. Home Medications Home Medications Medication Instructions Recorded Confirmed Type atorvastatin 10 mg PO DAILY 08/09/19 10/21/19 History glimepiride 2 mg PO DAILY 08/09/19 10/21/19 History hydrochlorothiazide 12.5 mg PO DAILY 08/09/19 10/21/19 History bisacodyl [Dulcolax (bisacodyl)] 5 mg PO DAILY PRN 10/21/19 10/21/19 History linagliptin [Tradjenta] 5 mg PO DAILY 10/21/19 10/21/19 History omeprazole 20 mg PO QAM 10/21/19 10/21/19 History oxycodone 5 mg PO Q6H PRN 10/21/19 10/21/19 History repaglinide 1 mg PO TIDM 10/21/19 10/21/19 History Allergies Allergy/AdvReac Type Severity Reaction Status Date / Time metformin Allergy Severe states Verified 10/21/19 20:59 drops his blood sugar very low lisinopril Allergy Intermediate Hives Verified 10/21/19 20:59 ranitidine Allergy Unknown Unknown Verified 10/21/19 20:59 losartan Allergy Hives Verified 10/21/19 20:59 tramadol Allergy HIVES Unverified 10/21/19 20:59 Past Med/Surg History Medical History Mcwilliams esophagus Chronic back pain Degenerative disc disease DM type 2 (diabetes mellitus, type 2) Dyslipidemia Fatty liver GERD (gastroesophageal reflux disease) Hypertension Osteoarthritis Tinnitus Surgical History History of adenoidectomy History of appendectomy History of colonoscopy History of esophagogastroduodenoscopy (EGD) History of tonsillectomy Hx of neck surgery c5- c6 fusion > full ROM Family History Grandfather (Maternal) Esophageal cancer Social History Preferred Language: Croatian Communication Ability: Effective Foreclosure Home Inspector Required: No Beliefs That Will Affect Care: None Current Living Situation: Significant Other Other Information That Helps Us Care for You: No Feels Safe at Home: Yes Safety Concerns: Feels Safe At This Time Smoking Status: Current every day smoker Tobacco Type: cigarettes ; Cigarettes Per Day: 1ppd ; Do You Dip or Chew Tobacco: No ; Second Hand Exposure: Yes ; Tobacco Cessation Education Requested by Patient: No Hx Alcohol Use: Yes Alcohol type: beer Hx Substance Use: No Review of Systems See HPI for pertinent positives & negatives. and A total of 10 systems reviewed and were otherwise negative Physical Exam Vital Signs Vital Signs - 24 hr 10/21/19 16:33 10/21/19 18:21 10/21/19 18:28 Temperature 36.9 C Temperature Source Oral Pulse Rate 83 64 68 Pulse Rate [Left Finger] 81 Pulse Rate from SpO2 Sensor Pulse Rhythm Regular Regular Pulse Strength Normal Respiratory Rate 20 13 Respiratory Effort / Characteristics Non-Labored Spontaneous Respiratory Depth Normal Respiratory Pattern Regular Blood Pressure 171/106 H 158/122 H Blood Pressure [Left Arm] 158/122 H Blood Pressure Mean 127 149 Blood Pressure Mean [Left Arm] 134 Blood Pressure Position Sitting Pulse Oximetry 97 99 98 Oxygen Delivery Method Room Air Room Air Room Air Sepsis Recent Fever Within 48 Hours No Sepsis Action Taken by Nursing No Action Required 10/21/19 18:45 10/21/19 19:00 10/21/19 19:31 Temperature Temperature Source Pulse Rate 65 69 74 Pulse Rate [Left Finger] Pulse Rate from SpO2 Sensor 67 73 Pulse Rhythm Pulse Strength Respiratory Rate 11 L 14 19 Respiratory Effort / Characteristics Respiratory Depth Respiratory Pattern Blood Pressure 137/87 Blood Pressure [Left Arm] Blood Pressure Mean 107 Blood Pressure Mean [Left Arm] Blood Pressure Position Pulse Oximetry 96 94 Oxygen Delivery Method Sepsis Recent Fever Within 48 Hours Sepsis Action Taken by Nursing 10/21/19 19:33 10/21/19 20:00 10/21/19 20:01 Temperature Temperature Source Pulse Rate 63 65 63 Pulse Rate [Left Finger] 67 Pulse Rate from SpO2 Sensor 63 65 62 Pulse Rhythm Pulse Strength Respiratory Rate 12 19 18 Respiratory Effort / Characteristics Respiratory Depth Respiratory Pattern Blood Pressure 120/83 137/86 Blood Pressure [Left Arm] 120/83 Blood Pressure Mean 89 113 Blood Pressure Mean [Left Arm] 95 Blood Pressure Position Pulse Oximetry 96 95 94 Oxygen Delivery Method Sepsis Recent Fever Within 48 Hours Sepsis Action Taken by Nursing 10/21/19 21:00 Temperature Temperature Source Pulse Rate 67 Pulse Rate [Left Finger] Pulse Rate from SpO2 Sensor 66 Pulse Rhythm Pulse Strength Respiratory Rate 19 Respiratory Effort / Characteristics Respiratory Depth Respiratory Pattern Blood Pressure Blood Pressure [Left Arm] Blood Pressure Mean Blood Pressure Mean [Left Arm] Blood Pressure Position Pulse Oximetry 93 Oxygen Delivery Method Sepsis Recent Fever Within 48 Hours Sepsis Action Taken by Nursing GENERAL: Patient is in no acute distress. HEENT: No acute trauma, normocephalic atraumatic, mucous membranes moist, no nasal congestion, no scleral icterus. NECK: No stridor, no adenopathy, no meningismus, trachea is midline. LUNGS: Clear to auscultation bilaterally, no wheeze, no rhonchi, breath sounds equal. HEART: Without murmurs gallops or rubs, regular rate and rhythm. ABDOMEN: Soft, bowel sounds positive, no hernias, no peritonitis. Moderate tenderness in the upper quadrants and epigastric area. EXTREMITIES: No cyanosis or edema, full range of motion of all the joints without pain or difficulty, no signs for acute trauma. NEUROLOGIC: Oriented x 3, no acute motor or sensory deficits, no focal weakness. SKIN: No rash, no jaundice, no diaphoresis. Course Course 1800: Past medical records reviewed. The patient was evaluated in room A11B by the resident under my supervision. A complete history and physical exam was performed. 1899: Past medical records reviewed. The patient was evaluated in room A11B by me. A complete history and physical exam was performed. 2000: Upon reevaluation, I discussed findings and results with the patient. He verbalized agreement of the treatment plan. I spoke with Dr. Naidu of the [facility]. The patient will be evaluated for further management and care. Administered Medications Hydromorphone HCl (Dilaudid) 0.5 mg IV Q6H PRN PRN Reason: Pain Stop: 11/04/19 22:26 Last Admin: 10/21/19 22:48 Dose: 0.5 mg Documented by: [id number] Lactated Ringer's (Lr) 1,000 mls @ 150 mls/hr IV .Q6H40M MICHAEL Stop: 11/20/19 22:26 Last Admin: 10/21/19 22:43 Dose: 150 mls/hr Documented by: [id number] Discontinued Medications Sodium Chloride (Nss 1000ml) 1,000 mls @ 999 mls/hr IV .Q1H1M ONE Stop: 10/21/19 21:12 Last Infusion: 10/21/19 21:37 Dose: 0 mls/hr Documented by: [id number] Admin: 10/21/19 20:28 Dose: 999 mls/hr Documented by: [id number] Ioversol (Optiray 320 100ml) 92 ml IV ONCE PRN PRN Reason: Interaction Checking Stop: 10/25/19 19:50 Last Admin: 10/21/19 19:52 Dose: 92 ml Documented by: [id number] Morphine Sulfate (Morphine Sulfate) 4 mg IV NOW STA Stop: 10/21/19 19:10 Last Admin: 10/21/19 19:27 Dose: 4 mg Documented by: [id number] Morphine Sulfate (Morphine Sulfate) 2 mg IV NOW STA Stop: 10/21/19 20:20 Last Admin: 10/21/19 20:30 Dose: 2 mg Documented by: [id number] Ondansetron HCl (Zofran) 4 mg IV NOW STA Stop: 10/21/19 19:10 Last Admin: 10/21/19 19:27 Dose: 4 mg Documented by: [id number] Medical Decision Making Differential Diagnosis Differential diagnosis: pancreatitis, biliary colic, gastritis, ulcer, diverticulitis, musculoskeletal pain, abscess, bowel perforation, hernia Medical Records Attestation: I reviewed the patient's medical records. Home Medications Current Medication List: was personally reviewed by me Laboratory Data Attestation: I reviewed the patient's lab results. Result diagrams: 10/21/19 18:37 10/21/19 18:37 Lab Results 10/21/19 10/21/19 10/21/19 Range/Units 18:37 18:37 18:37 WBC 10.51 (4.8-10.8) K/uL RBC 4.67 L (4.7-6.1) M/uL Hgb 15.8 (14.0-18.0) g/dL Hct 44.1 (42-52) % MCV 94.4 (80-100) fL MCH 33.8 (25-34) pg MCHC 35.8 (32-36) g/dL RDW Std Deviation 41.3 (36.4-46.3) fL RDW Coeff of Shabnam 12.2 (11.5-14.5) % Plt Count 200 (130-400) K/uL MPV 9.9 (7.4-10.4) fL Immature Gran % (Auto) 0.3 % Neut % (Auto) 57.8 % Lymph % (Auto) 32.4 % [place] % (Auto) 7.0 % Eos % (Auto) 2.3 % Baso % (Auto) 0.2 % Immature Gran # (Auto) 0.03 H (0.00-0.02) K/uL Neut # (Auto) 6.08 (1.4-6.5) K/uL Lymph # (Auto) 3.40 (1.2-3.4) K/uL [place] # (Auto) 0.74 H (0.11-0.59) K/uL Eos # (Auto) 0.24 (0-0.5) K/uL Baso # (Auto) 0.02 (0-0.2) K/uL Sodium 137 (136-145) mmol/L Potassium 4.1 (3.5-5.1) mmol/L Chloride 101 (98-107) mmol/L Carbon Dioxide 31 (21-32) mmol/L Anion Gap 5.0 (3-11) BUN 8 (7-18) mg/dl Creatinine 0.78 (0.6-1.4) mg/dl Est Cr Clr Drug Dosing 155.3 ml/min Est GFR ( Amer) 124.6 Est GFR (Non-Af Amer) 107.5 BUN/Creatinine Ratio 10.6 (10-20) Glucose 111 H (70-99) mg/dl Calcium 9.2 (8.5-10.1) mg/dl Total Bilirubin 0.7 (0.2-1) mg/dl AST 62 H (15-37) U/L ALT 76 (12-78) U/L Alkaline Phosphatase 154 H (45-117) U/L Troponin I < 0.015 (0-0.045) ng/ml Total Protein 8.4 H (6.4-8.2) gm/dl Albumin 3.9 (3.4-5.0) gm/dl Globulin 4.5 H (2.5-4.0) gm/dl Albumin/Globulin Ratio 0.9 (0.9-2) Lipase 501 H (73-393) U/L Urine Color Yellow Urine Appearance Clear (Clear) Urine pH 6.5 (4.5-7.5) Ur Specific [place] 1.006 (1.000-1.030) Urine Protein Negative (Negative) Urine Glucose (UA) Negative (Negative) Urine Ketones Negative (Negative) Urine Blood Negative (Negative) Urine Nitrite Negative (Negative) Urine Bilirubin Negative (Negative) Urine Urobilinogen Negative (Negative) Ur Leukocyte Esterase Negative (Negative) Imaging Data Radiologist's Impression: Radiology results as stated below per my review and the radiologist's interpretation: CT abd pelvis IV con only CT DOSE: 1451.36 mGy.cm HISTORY: Pain LUQ, RUQ and epigastric abdominal pain TECHNIQUE: Multiaxial CT images of the abdomen and pelvis were performed following the use of intravenous contrast. A dose lowering technique was utilized adhering to the principles of ALARA. COMPARISON STUDY: 11/07/2018 FINDINGS: Lung bases are clear. Fatty replacement of the liver. Several gallstones are present. Kidneys enhance uniformly. No evidence for hydronephrosis. Bowel pattern is nonobstructive. The appendix is suboptimally seen L there is no evidence for an inflammatory process of the right lower quadrant. Bladder is midline. There is no free fluid within the pelvic cul-de-sac. IMPRESSION: 1. Gallstones. 2. Fatty replacement of the liver. 3. Otherwise negative study abdomen and pelvis. ACT 112: Negative or not required by law. The above report was generated using voice recognition software. It may contain grammatical, syntax or spelling errors. Electronically signed by: Shabbir Almaraz M.D. 10/21/2019 8:00 PM ECG Data Attestation: I personally reviewed and interpreted this ECG as follows: Indication: + abdominal pain Rate (beats per minute): 63 Rhythm: + normal sinus ECG Intervals/blocks: + Normal QT-c (392) ECG ST segments: no ST elevation ECG Findings: no PVCs Blood Pressure Blood Pressure Findings: Elevated blood pressure Blood Pressure Disposition: further management by hospitalist MDM Narrative There is no leukocytosis or concerning anemia. No significant electrolyte abnormality or kidney failure. There were a few subtle liver enzyme elevations. The bilirubin was normal. Lipase was elevated consistent with pancreatitis. Urinalysis did not show any evidence for infection. EKG showed a sinus rhythm, no acute ischemia. Cardiac enzyme testing x1 was not consistent with acute cardiac injury. Abdominal and pelvis CT shows gallstones, no pancreatic inflammation by CT imaging. No bowel obstruction. The patient presents with ongoing abdominal pain. He does appear to have pancreatitis by work-up. This could explain his discomfort. With the gallstones noted, gallstone pancreatitis is likely. Given the findings, a hospital stay is warranted. Bowel rest is required. The patient may require further imaging or work-up for his gallstones. Patient was given IV morphine for pain, IV Zofran for nausea, he is currently resting comfortably. Case management has been involved. I talked to the patient about all his findings, the on-call hospitalist was consulted. Continuous Cardiac Monitoring: An order was placed for continuous cardiac monitoring. The monitor shows a rate of 65 with normal sinus rhythm. Impression & Plan Pancreatitis, Gallstones, Abdominal pain, epigastric Discharge Plan Visit Data *Final* Discharge Date/Time: 10/21/19 22:25 Chief Complaint: Abdominal Pain Stated Complaint: ABD PAIN ED Provider: Juan Carlos Akbar ED Midlevel Provider: Gunjan Bai Discharge Problem: Pancreatitis, Gallstones, Abdominal pain, epigastric Patient Disposition: Being Evaluated by Hospitalist Discharge Instructions Interventions: ED Discharge Assessment Last Done: 10/21/19 22:25 Discharge Problem: Pancreatitis Qualifiers: Chronicity: acute Pancreatitis type: unspecified pancreatitis type Acute pancreatitis complication: unspecified Qualified Code(s): K85.90 - Acute pancreatitis without necrosis or infection, unspecified The scribe's documentation has been prepared under my direction and personally reviewed by me in its entirety. I confirm that the note above accurately reflects all work, treatment, procedures, and medical decision making performed by me.
[2019-10-22] MEDS: NICOTINE 21 MG/24 HR TDSY TD SCH (02:12)
[2019-10-22] MEDS: HYDROmorphone INJ 0.5 MG/0.5 ML SYR IV PRN ×6 (05:03→22:06)
[2019-10-22] MEDS: LACTATED RINGER'S 1,000 ML IV SCH ×5 (05:46→23:03)
[2019-10-22] MEDS: INSULIN ASPART 100 UNITS/ML 3 ML PEN SC SCH ×5 (05:50→21:32)
--- NOTE | 2019-10-22 06:14 | Magnetic Resonance Report ---
Study: MRCP. HISTORY: Pancreatitis. FINDINGS: Signal characteristics of the liver spleen and pancreas appear unremarkable. No significant peripancreatic infiltrative changes.. Kidneys enhance uniformly. No evidence for hydronephrosis. Bowel pattern is consistent obstructive. Gallbladder contains several small gallstones. There does not appear to be dilatation of the biliary or pancreatic ductal system. No significant filling defects are appreciated. IMPRESSION: 1. No evidence of pancreatitis. 2. Gallstones. 3. Normal MRCP. 4. Study is otherwise negative. Electronically signed by: Shabbir Almaraz M.D. 10/22/2019 6:13 AM
[2019-10-22 06:46] LABS: Albumin Globulin Ratio 0.8 (0.9-2); Albumin Level 3.4 gm/dl (3.4-5.0); BUN Creatinine Ratio 12.6 (10-20); Calcium 9.1 mg/dl (8.5-10.1); Creatinine Clr Calc Pharmacy 155.3 ml/min; Est GFR (African American) 124.6; Est GFR (Non-African American) 107.5; Total Protein 7.4 gm/dl (6.4-8.2)
[2019-10-22 07:17] LABS: Potassium 3.7 mmol/L (3.5-5.1)
--- NOTE | 2019-10-22 08:13 | Hospitalist Progress Note ---
Date of Service October 22, 2019 Assessment & Plan (1) Abdominal pain: Gallstone pancreatitis -Patient presenting from home for evaluation of abdominal pain has been ongoing and worsening for the past 2 months -Review of prior labs show patient has had mildly elevated LFTs over the past few months -In the ED, AST and alk phos mildly elevated with normal total bili and ALT; lipase mildly elevated 501 -CT ABD/pelvis showing gallstones -Given gallstones on CT ABD/pelvis, poss. 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 IV LR 250/hr Plan for cholecystectomy tomorrow per general surgery. Review of Systems Review of Systems: All systems reviewed & are unremarkable except as noted in HPI & below Constitutional: no fever and no chills Respiratory: no cough and no dyspnea Cardiovascular: no chest pain, no dyspnea on exertion and no palpitations Gastrointestinal: + abdominal pain (LUQ (improved)); no nausea and no vomiting Physical Exam Physical Exam: Constitutional: Middle-aged obese male,WD/WN, laying in bed, in no acute distress Eyes: PERRL, conjunctivae normal, anicteric sclerae ENMT: external ear and nose normal, oropharynx normal Respiratory: normal respiratory effort, lungs clear to auscultation Cardiovascular: Rate/Rhythm: regular rate and regular rhythm Vessels: normal peripheral pulses Extremities: no edema Gastrointestinal (Abdomen): Inspection/Auscultation: normal bowel sounds Percussion/Palpation: + abdomen tender (Left lateral mid abdomen, Epigastric) and abdomen soft Musculoskeletal: no cyanosis or clubbing, extremities motor strength 5/5 Skin: no rashes, warm and dry Neurologic: PERRL, EOMI, accommodation nl, no face palsy, no dysarthria Psychiatric: A+Ox3, euthymic affect Results & Data Vital Signs (Past 12 Hours) Vital Signs Temp Pulse Pulse Resp BP BP Pulse Ox 10/22/19 07:08 36.7 C 68 17 124/77 91 10/21/19 23:02 36.5 C 70 18 137/87 10/21/19 22:27 36.7 C 72 16 148/73 H 97 10/21/19 22:25 67 20 138/80 99 10/21/19 21:00 67 19 93 Laboratory Results 10/22/19 10/22/19 10/22/19 Range/Units 06:48 05:42 04:54 WBC (4.8-10.8) K/uL RBC (4.7-6.1) M/uL Hgb (14.0-18.0) g/dL Hct (42-52) % MCV (80-100) fL MCH (25-34) pg MCHC (32-36) g/dL RDW Std Deviation (36.4-46.3) fL RDW Coeff of Shabnam (11.5-14.5) % Plt Count (130-400) K/uL MPV (7.4-10.4) fL Immature Gran % (Auto) % Neut % (Auto) % Lymph % (Auto) % Forrest % (Auto) % Eos % (Auto) % Baso % (Auto) % Immature Gran # (Auto) (0.00-0.02) K/uL Neut # (Auto) (1.4-6.5) K/uL Lymph # (Auto) (1.2-3.4) K/uL Forrest # (Auto) (0.11-0.59) K/uL Eos # (Auto) (0-0.5) K/uL Baso # (Auto) (0-0.2) K/uL Sodium 138 (136-145) mmol/L Potassium 3.7 (3.5-5.1) mmol/L Chloride 104 (98-107) mmol/L Carbon Dioxide 29 (21-32) mmol/L Anion Gap 5.0 (3-11) BUN 10 (7-18) mg/dl Creatinine 0.78 (0.6-1.4) mg/dl Est Cr Clr Drug Dosing 155.3 ml/min Est GFR ( Amer) 124.6 Est GFR (Non-Af Amer) 107.5 BUN/Creatinine Ratio 12.6 (10-20) Glucose 109 H (70-99) mg/dl POC Glucose 121 H (70-99) mg/dl Calcium 9.1 (8.5-10.1) mg/dl Total Bilirubin 1.0 (0.2-1) mg/dl AST 67 H (15-37) U/L ALT 67 (12-78) U/L Alkaline Phosphatase 133 H (45-117) U/L Troponin I (0-0.045) ng/ml Total Protein 7.4 (6.4-8.2) gm/dl Albumin 3.4 (3.4-5.0) gm/dl Globulin 4.0 (2.5-4.0) gm/dl Albumin/Globulin Ratio 0.8 L (0.9-2) Lipase 435 H (73-393) U/L Urine Color Urine Appearance (Clear) Urine pH (4.5-7.5) Ur Specific [place] (1.000-1.030) Urine Protein (Negative) Urine Glucose (UA) (Negative) Urine Ketones (Negative) Urine Blood (Negative) Urine Nitrite (Negative) Urine Bilirubin (Negative) Urine Urobilinogen (Negative) Ur Leukocyte Esterase (Negative) 10/22/19 10/21/19 10/21/19 Range/Units 02:11 22:32 18:37 WBC (4.8-10.8) K/uL RBC (4.7-6.1) M/uL Hgb (14.0-18.0) g/dL Hct (42-52) % MCV (80-100) fL MCH (25-34) pg MCHC (32-36) g/dL RDW Std Deviation (36.4-46.3) fL RDW Coeff of Shabnam (11.5-14.5) % Plt Count (130-400) K/uL MPV (7.4-10.4) fL Immature Gran % (Auto) % Neut % (Auto) % Lymph % (Auto) % Forrest % (Auto) % Eos % (Auto) % Baso % (Auto) % Immature Gran # (Auto) (0.00-0.02) K/uL Neut # (Auto) (1.4-6.5) K/uL Lymph # (Auto) (1.2-3.4) K/uL Forrest # (Auto) (0.11-0.59) K/uL Eos # (Auto) (0-0.5) K/uL Baso # (Auto) (0-0.2) K/uL Sodium (136-145) mmol/L Potassium (3.5-5.1) mmol/L Chloride (98-107) mmol/L Carbon Dioxide (21-32) mmol/L Anion Gap (3-11) BUN (7-18) mg/dl Creatinine (0.6-1.4) mg/dl Est Cr Clr Drug Dosing ml/min Est GFR ( Amer) Est GFR (Non-Af Amer) BUN/Creatinine Ratio (10-20) Glucose (70-99) mg/dl POC Glucose 113 H 121 H (70-99) mg/dl Calcium (8.5-10.1) mg/dl Total Bilirubin (0.2-1) mg/dl AST (15-37) U/L ALT (12-78) U/L Alkaline Phosphatase (45-117) U/L Troponin I (0-0.045) ng/ml Total Protein (6.4-8.2) gm/dl Albumin (3.4-5.0) gm/dl Globulin (2.5-4.0) gm/dl Albumin/Globulin Ratio (0.9-2) Lipase (73-393) U/L Urine Color Yellow Urine Appearance Clear (Clear) Urine pH 6.5 (4.5-7.5) Ur Specific [place] 1.006 (1.000-1.030) Urine Protein Negative (Negative) Urine Glucose (UA) Negative (Negative) Urine Ketones Negative (Negative) Urine Blood Negative (Negative) Urine Nitrite Negative (Negative) Urine Bilirubin Negative (Negative) Urine Urobilinogen Negative (Negative) Ur Leukocyte Esterase Negative (Negative) 10/21/19 10/21/19 Range/Units 18:37 18:37 WBC 10.51 (4.8-10.8) K/uL RBC 4.67 L (4.7-6.1) M/uL Hgb 15.8 (14.0-18.0) g/dL Hct 44.1 (42-52) % MCV 94.4 (80-100) fL MCH 33.8 (25-34) pg MCHC 35.8 (32-36) g/dL RDW Std Deviation 41.3 (36.4-46.3) fL RDW Coeff of Shabnam 12.2 (11.5-14.5) % Plt Count 200 (130-400) K/uL MPV 9.9 (7.4-10.4) fL Immature Gran % (Auto) 0.3 % Neut % (Auto) 57.8 % Lymph % (Auto) 32.4 % Forrest % (Auto) 7.0 % Eos % (Auto) 2.3 % Baso % (Auto) 0.2 % Immature Gran # (Auto) 0.03 H (0.00-0.02) K/uL Neut # (Auto) 6.08 (1.4-6.5) K/uL Lymph # (Auto) 3.40 (1.2-3.4) K/uL Forrest # (Auto) 0.74 H (0.11-0.59) K/uL Eos # (Auto) 0.24 (0-0.5) K/uL Baso # (Auto) 0.02 (0-0.2) K/uL Sodium 137 (136-145) mmol/L Potassium 4.1 (3.5-5.1) mmol/L Chloride 101 (98-107) mmol/L Carbon Dioxide 31 (21-32) mmol/L Anion Gap 5.0 (3-11) BUN 8 (7-18) mg/dl Creatinine 0.78 (0.6-1.4) mg/dl Est Cr Clr Drug Dosing 155.3 ml/min Est GFR ( Amer) 124.6 Est GFR (Non-Af Amer) 107.5 BUN/Creatinine Ratio 10.6 (10-20) Glucose 111 H (70-99) mg/dl POC Glucose (70-99) mg/dl Calcium 9.2 (8.5-10.1) mg/dl Total Bilirubin 0.7 (0.2-1) mg/dl AST 62 H (15-37) U/L ALT 76 (12-78) U/L Alkaline Phosphatase 154 H (45-117) U/L Troponin I < 0.015 (0-0.045) ng/ml Total Protein 8.4 H (6.4-8.2) gm/dl Albumin 3.9 (3.4-5.0) gm/dl Globulin 4.5 H (2.5-4.0) gm/dl Albumin/Globulin Ratio 0.9 (0.9-2) Lipase 501 H (73-393) U/L Urine Color Urine Appearance (Clear) Urine pH (4.5-7.5) Ur Specific [place] (1.000-1.030) Urine Protein (Negative) Urine Glucose (UA) (Negative) Urine Ketones (Negative) Urine Blood (Negative) Urine Nitrite (Negative) Urine Bilirubin (Negative) Urine Urobilinogen (Negative) Ur Leukocyte Esterase (Negative) Diagnostic Findings MRCP 10/22/2019 IMPRESSION: 1. No evidence of pancreatitis. 2. Gallstones. 3. Normal MRCP. 4. Study is otherwise negative. CT abd./pelvis 10/21/2019 1. Gallstones. 2. Fatty replacement of the liver. 3. Otherwise negative study abdomen and pelvis. Medications Administered Current Inpatient Medications Acetaminophen (Tylenol) 650 mg PO Q4H PRN PRN Reason: pain/fever Stop: 11/20/19 22:26 Dextrose (Dextrose 50%) 25 - 50 ml IV UD PRN; Protocol PRN Reason: Hypoglycemia Protocol Stop: 11/20/19 22:54 Glucagon (Glucagen) 1 mg SQ UD PRN; Protocol PRN Reason: Hypoglycemia Protocol Stop: 11/20/19 22:54 Glucose (Dex4 Glucose) 4 - 8 tabs PO UD PRN; Protocol PRN Reason: Hypoglycemia Protocol Stop: 11/20/19 22:54 Glucose (Glucose 40%) 15 - 30 gm PO UD PRN; Protocol PRN Reason: Hypoglycemia Protocol Stop: 11/20/19 22:54 Hydromorphone HCl (Dilaudid) 0.5 mg IV Q3H PRN PRN Reason: Pain Stop: 11/04/19 22:26 Last Admin: 10/22/19 08:03 Dose: 0.5 mg Documented by: Lactated Ringer's (Lr) 1,000 mls @ 150 mls/hr IV .Q6H40M [facility] Stop: 11/20/19 22:26 Last Admin: 10/22/19 05:46 Dose: 150 mls/hr Documented by: Insulin Aspart (Novolog Flexpen) 0 units SC Q6 [facility] Stop: 11/21/19 05:59 Last Admin: 10/22/19 05:50 Dose: Not Given Documented by: Miscellaneous (Carbohydrates For Hypoglycemia) 15 - 30 gm PO UD PRN PRN Reason: Hypoglycemia Protocol Stop: 11/20/19 22:54 Miscellaneous (Remove Nicoderm Patch) 1 ea N/A DAILY@[id number] [facility] Stop: 11/22/19 08:58 Nicotine (Nicoderm Cq) 21 mg TD [facility] Stop: 11/21/19 01:59 Last Admin: 10/22/19 02:12 Dose: 21 mg Documented by: Pantoprazole Sodium (Protonix) [facility] [place] Stop: 11/21/19 08:59
[2019-10-22] MEDS: PANTOprazole 40 MG TAB PO SCH (09:42)
--- NOTE | 2019-10-22 11:29 | Gastrointestinal Consultation ---
Date of Consultation October 22, 2019 Assessment & Plan (1) Pancreatitis: It appears that he has experienced an episode of mild acute pancreatitis (elevated lipase to 500's, no evidence of pancreas abnormalities on CT or MRCP). The cause of the pancreatitis is uncertain, but his acute elevation in the transaminases at the time of the onset of increased pain and presence of stones in the gallbladder suggests gallstone pancreatitis. Also considered is caused by Tradjenta. He denies any hx of increased alcohol intake and is not a smoker. Tx of pancreatitis as being managed by primary hospital service: IV fluids (would increase to 250cc/hr), bowel rest, analgesics. LFTs and lipase are significantly improved. His LFTs have been intermittently elevated in the past, suggestive of fatty liver. Would follow LFTs, lipase periodically. No indication for ERCP. Recommend non urgent surgical referral to consider cholecystectomy. Present on Admission?: Yes (2) Gallstones: Recommend non urgent surgical referral to consider cholecystectomy. Present on Admission?: Yes Supervising Physician Co-Signing Physician Notes Attending attestation I have seen, examined this patient, and agree with the findings and above by our mid-level provider BRIA Solorzano, with the following additions: -Patient with chronic postprandial colicky type abdominal pain for the last several months, now presents with mild pancreatitis with stones in his gallbladder and transient resolved elevations of transaminases. Likely a passed gallstone in the setting of mild gallstone pancreatitis. Surgery is evaluated and is planning on taken to the operating room tomorrow. -We will continue with IV fluids and pain control further care with general surgery afterwards. History of Present Illness Reason for Consultation: abdominal pain, ? gallstone pancreatitis Requesting Physician: Melodie Caro NP Attending Physician: Augusto Stinson MD History of Present Illness Mr. Yazan Benton is a 48 yr old male pt of Dr. Chantal Barton with a hx of hyperlipidemia, DM 2, neuropathy, he was instructed to present to [facility] for admission due to abdominal pain with elevated lipase and LFTs. The patient reports ongoing upper abdomen pain x 2 months and describes this as epigastric and left upper quadrant, present all day long, every day, worse after eating any high fat foods. He happened undergo EGD September 30, 2019 for surveillance of Mcwilliams's with findings of short segment Mcwilliams's. On Jennie 24, he saw his PCP for a preoperative visit for shoulder surgery. Routine labs showed elevated LFTs and lipase: T BIli 0.6, AST 103, ALT 78, Alk Phos 155, lipase 70. Ultrasound was ordered and these labs were to repeated in 1 week. The US was completed yesterday but results were not yet available. Yesterday, his pain worsened and he presented to the emergency department. On arrival, lipase was elevated at 501-> 435 today: AST 62_>67, ALT 76->67, Alk Phos 133->154. Bilirubin has been normal. The patient continues with moderately severe upper abdomen pain. CT the abdomen pelvis with IV contrast suggested gallstones but no mention of gallbladder wall thickening, CBD abnormalities or pancreas abnormalities. MRCP again suggesting gallstones and and specifically reported pancreas or CBD abnormalities. Patient is seen and examined while he is resting in bed. He is awake alert oriented hemodynamic dynamically stable does not have leukocytosis or fevers and reports continued pain, though he appears well, without diaphoresis or tachycardia. Regarding risks for pancreatitis, he denies any history of increased alcohol intake. He was recently started on Tradjenta in July (and oral DPP 4 inhibitor which is associated with increased incidence of acute pancreatitis). PCP instructed him to stop the Tradjenta yesterday). Allergies Allergy/AdvReac Type Severity Reaction Status Date / Time metformin Allergy Severe states Verified 10/21/19 20:59 drops his blood sugar very low lisinopril Allergy Intermediate Hives Verified 10/21/19 20:59 ranitidine Allergy Unknown Unknown Verified 10/21/19 20:59 losartan Allergy Hives Verified 10/21/19 20:59 tramadol Allergy HIVES Unverified 10/21/19 20:59 Home Medications Home Medications Medication Instructions Recorded Confirmed Type atorvastatin 10 mg PO DAILY 08/09/19 10/21/19 History glimepiride 2 mg PO DAILY 08/09/19 10/21/19 History hydrochlorothiazide 12.5 mg PO DAILY 08/09/19 10/21/19 History bisacodyl [Dulcolax (bisacodyl)] 5 mg PO DAILY PRN 10/21/19 10/21/19 History linagliptin [Tradjenta] 5 mg PO DAILY 10/21/19 10/21/19 History omeprazole 20 mg PO QAM 10/21/19 10/21/19 History oxycodone 5 mg PO Q6H PRN 10/21/19 10/21/19 History repaglinide 1 mg PO TIDM 10/21/19 10/21/19 History Patient History Medical History Mcwilliams esophagus Chronic back pain Degenerative disc disease DM type 2 (diabetes mellitus, type 2) Dyslipidemia Fatty liver GERD (gastroesophageal reflux disease) Hypertension Osteoarthritis Tinnitus Surgical History History of adenoidectomy History of appendectomy History of colonoscopy History of esophagogastroduodenoscopy (EGD) History of tonsillectomy Hx of neck surgery c5- c6 fusion > full ROM Family History Grandfather (Maternal) Esophageal cancer Social History Preferred Language: Thai Communication Ability: Effective It Business Systems Analyst Required: No Beliefs That Will Affect Care: None Current Living Situation: Significant Other Other Information That Helps Us Care for You: No Feels Safe at Home: Yes Safety Concerns: Feels Safe At This Time Smoking Status: Current every day smoker Tobacco Type: cigarettes ; Cigarettes Per Day: 1ppd ; Do You Dip or Chew Tobacco: No ; Second Hand Exposure: Yes ; Tobacco Cessation Education Requested by Patient: No Hx Alcohol Use: Yes Alcohol type: beer Hx Substance Use: No Review of Systems Review of Systems: ROS: Gen: Denies weakness, fevers, weight loss Eyes: No eye redness, or pain, no recent vision changes Resp: No SOB, no cough Cardio: No palpitations/irregular beats, no chest pain GI: See HPI : Denies pain on urination Skin: No jaundice, itching or new rashes Physical Exam Constitutional: WD/WN, vitals as above Eyes: PERRL, conjunctivae normal, anicteric sclerae ENMT: external ear and nose normal, oropharynx normal Neck: trachea midline, no thyromegaly Respiratory: normal respiratory effort, lungs clear to auscultation Cardiovascular: RRR, no murmur, no edema Gastrointestinal (Abdomen): Inspection/Auscultation: abdomen normal to inspection and + hypoactive bowel sounds; abdomen not distended Percussion/Palpation: + abdomen tender (modertely tender in the epigastric area and the LUQ and Left mid abdomen) and abdomen soft Skin: no rashes, warm and dry Neurologic: PERRL, EOMI, accommodation nl, no face palsy, no dysarthria Psychiatric: A+Ox3, euthymic affect Lymphatic: no cervical or axillary lymphadenopathy Results & Data Vital Signs (Past 12 Hours) Vital Signs Temp Pulse Resp BP Pulse Ox 10/22/19 07:08 36.7 C 68 17 124/77 91 Laboratory Results Most recent: WBC 1, Hb 15, Hct 44, Platelets 200, Na 138, K 3.7. T Bili 1.0, AST67, ALT 67, Alk Phos 155, Lipase 50. Diagnostic Findings CT abd/pelvis with IV contrast 10/21/19: 1. No evidence of pancreatitis. 2. Gallstones. 3. Normal MRCP. 4. Study is otherwise negative. MRCP : 1. No evidence of pancreatitis. 2. Gallstones. 3. Normal MRCP. 4. Study is otherwise negative (1) Pancreatitis Acute pancreatitis complication: unspecified Chronicity: acute Pancreatitis type: unspecified pancreatitis type Qualified Code(s): K85.90 - Acute pancreatitis without necrosis or infection, unspecified
--- NOTE | 2019-10-22 13:34 | Surgery Consultation ---
Date of Consultation October 22, 2019 Assessment & Plan (1) Pancreatitis: Cholelithiasis, pancreatitis. Pain is rather significant for lipase 4-500. Will consider lap isha with IOC for tomorrow, recheck labs and exam in AM. History of Present Illness Attending Physician: Augusto Stinson MD History of Present Illness 48 y/o male with abdominal pain that began yesterday. He's been having intermittent epigastric pain, fatty food intolerance for several months. This pain was more severe, persists on left side. No N/V. No back pain. Has had normal BM. Allergies Allergy/AdvReac Type Severity Reaction Status Date / Time metformin Allergy Severe states Verified 10/21/19 20:59 drops his blood sugar very low lisinopril Allergy Intermediate Hives Verified 10/21/19 20:59 ranitidine Allergy Unknown Unknown Verified 10/21/19 20:59 losartan Allergy Hives Verified 10/21/19 20:59 tramadol Allergy HIVES Unverified 10/21/19 20:59 Home Medications Home Medications Medication Instructions Recorded Confirmed Type atorvastatin 10 mg PO DAILY 08/09/19 10/21/19 History glimepiride 2 mg PO DAILY 08/09/19 10/21/19 History hydrochlorothiazide 12.5 mg PO DAILY 08/09/19 10/21/19 History bisacodyl [Dulcolax (bisacodyl)] 5 mg PO DAILY PRN 10/21/19 10/21/19 History linagliptin [Tradjenta] 5 mg PO DAILY 10/21/19 10/21/19 History omeprazole 20 mg PO QAM 10/21/19 10/21/19 History oxycodone 5 mg PO Q6H PRN 10/21/19 10/21/19 History repaglinide 1 mg PO TIDM 10/21/19 10/21/19 History Patient History Medical History Mcwilliams esophagus Chronic back pain Degenerative disc disease DM type 2 (diabetes mellitus, type 2) Dyslipidemia Fatty liver GERD (gastroesophageal reflux disease) Hypertension Osteoarthritis Tinnitus Surgical History History of adenoidectomy History of appendectomy History of colonoscopy History of esophagogastroduodenoscopy (EGD) History of tonsillectomy Hx of neck surgery c5- c6 fusion > full ROM Family History Grandfather (Maternal) Esophageal cancer Social History Preferred Language: Scottish Communication Ability: Effective Seat Joiner Required: No Beliefs That Will Affect Care: None Current Living Situation: Significant Other Other Information That Helps Us Care for You: No Feels Safe at Home: Yes Safety Concerns: Feels Safe At This Time Smoking Status: Current every day smoker Tobacco Type: cigarettes ; Cigarettes Per Day: 1ppd ; Do You Dip or Chew Tobacco: No ; Second Hand Exposure: Yes ; Tobacco Cessation Education Requested by Patient: No Hx Alcohol Use: Yes Alcohol type: beer Hx Substance Use: No Review of Systems Constitutional: no fever and no chills Gastrointestinal: + abdominal pain; no heartburn, no nausea and no vomiting Physical Exam Constitutional: WD/WN, vitals as above Respiratory: normal respiratory effort, lungs clear to auscultation Cardiovascular: RRR, no murmur, no edema Gastrointestinal (Abdomen): Inspection/Auscultation: abdomen not distended Percussion/Palpation: + abdomen tender (LMQ=epigastric, nontender RUQ) and abdomen soft Results & Data Vital Signs (Past 12 Hours) Vital Signs Temp Pulse Resp BP Pulse Ox 10/22/19 07:08 36.7 C 68 17 124/77 91 PG Care Time/CCT Total # of Minutes Spent Total Time Spent with Patient: Total time spent is greater than 50% in coordination of care (as documented) at patient's floor/unit and/or counseling patient: Coding Level of Care Code 48173 Inpt Consult Level 3 Diagnoses Pancreatitis K85.90 Acute pancreatitis complication: unspecified Chronicity: acute Pancreatitis type: unspecified pancreatitis type (1) Pancreatitis Acute pancreatitis complication: unspecified Chronicity: acute Pancreatitis type: unspecified pancreatitis type Qualified Code(s): K85.90 - Acute pancreatitis without necrosis or infection, unspecified
[2019-10-22] MEDS ORDERED: Nursing to Pharmacy Communication ONE (13:35)
[2019-10-22] MEDS ORDERED: ONDANSETRON INJ 2 MG/ML 2 ML VIAL IV PRN (15:37)
--- NOTE | 2019-10-22 16:55 | Anesthesiology Consultation ---
Date of Service October 22, 2019 Assessment & Plan (1) Encounter for pre-operative examination: Chart Review Chart Review: Acceptable Risk for Surgery and Patient NOT seen in Pre Admission Testing Consults Requested none History Surgery Operation Date: 10/23/19 11:00 Proposed Procedures p Laparoscopic Cholecystectomy with Cholangiogram - Ramesh Yanes MD Height/Weight Height: 6 ft Weight: 118 kg Allergies Allergy/AdvReac Type Severity Reaction Status Date / Time metformin Allergy Severe states Verified 10/21/19 20:59 drops his blood sugar very low lisinopril Allergy Intermediate Hives Verified 10/21/19 20:59 ranitidine Allergy Unknown Unknown Verified 10/21/19 20:59 losartan Allergy Hives Verified 10/21/19 20:59 tramadol Allergy HIVES Unverified 10/21/19 20:59 Medications Home Medications Medication Instructions Recorded Confirmed Last Taken atorvastatin 10 mg PO DAILY 08/09/19 10/21/19 10/21/19 08:00 glimepiride 2 mg PO DAILY 08/09/19 10/21/19 10/21/19 08:00 hydrochlorothiazide 12.5 mg PO DAILY 08/09/19 10/21/19 10/21/19 08:00 bisacodyl [Dulcolax (bisacodyl)] 5 mg PO DAILY PRN 10/21/19 10/21/19 Unknown linagliptin [Tradjenta] 5 mg PO DAILY 10/21/19 10/21/19 10/21/19 08:00 omeprazole 20 mg PO QAM 10/21/19 10/21/19 10/21/19 08:00 oxycodone 5 mg PO Q6H PRN 10/21/19 10/21/19 Unknown repaglinide 1 mg PO TIDM 10/21/19 10/21/19 Unknown Active Medications Generic Name Dose Route Start Last Admin Trade Name Freq PRN Reason Stop Dose Admin Hydromorphone HCl 0.5 mg 10/22/19 00:42 10/22/19 15:21 Dilaudid IV 11/04/19 22:26 0.5 mg Q3H PRN Administration Pain Lactated Ringer's 1,000 mls @ 250 mls/hr 10/21/19 22:27 10/22/19 15:25 Lr IV 11/20/19 22:26 250 mls/hr .Q4H MICHAEL Administration Insulin Aspart 0 units 10/22/19 16:30 10/22/19 14:47 Novolog Flexpen SC 11/21/19 16:29 3 units ACHS MICHAEL Administration Nicotine 21 mg 10/22/19 02:00 10/22/19 02:12 Nicoderm Cq TD 11/21/19 01:59 21 mg QAM MICHAEL Administration Ondansetron HCl 4 mg 10/22/19 15:37 10/22/19 16:56 Zofran IV 11/21/19 15:36 4 mg Q6H PRN Administration Nausea Pantoprazole Sodium 40 mg 10/22/19 09:00 10/22/19 09:42 Protonix PO 11/21/19 08:59 40 mg QAM MICHAEL Administration NPO Date Last Intake of Fluids: 10/21/19 Time Last Intake of Fluids: 23:59 Date Last Intake of Solids: 10/21/19 Time Last Intake of Solids: 23:59 Past Medical History Medical History Mcwilliams esophagus Chronic back pain Degenerative disc disease DM type 2 (diabetes mellitus, type 2) Dyslipidemia Fatty liver GERD (gastroesophageal reflux disease) Hypertension Osteoarthritis Tinnitus Past Family History Family History Grandfather (Maternal) Esophageal cancer Past Surgical History Surgical History History of adenoidectomy History of appendectomy History of colonoscopy History of esophagogastroduodenoscopy (EGD) History of tonsillectomy Hx of neck surgery c5- c6 fusion > full ROM Social History Smoking Status: Current every day smoker tobacco type: cigarettes Smoking cigarettes per day: 1ppd Do You Dip or Chew Tobacco: No Hx Alcohol Use: Yes Alcohol type: beer alcohol intake frequency: holidays/special occasions only Hx Substance Use: No substance use type: does not use Physical Exam Vital Signs Last Vital Signs Temp 36.6 C 10/22/19 15:12 Pulse 57 L 10/22/19 15:12 Resp 18 10/22/19 15:12 BP 150/83 H 10/22/19 15:12 Pulse Ox 97 10/22/19 15:12 Testing Laboratory Results 10/21/19 18:37 10/22/19 06:48 Urine Color Yellow 10/21/19 18:37 Urine Appearance Clear (Clear) 10/21/19 18:37 Urine pH 6.5 (4.5-7.5) 10/21/19 18:37 Ur Specific [place] 1.006 (1.000-1.030) 10/21/19 18:37 Urine Protein Negative (Negative) 10/21/19 18:37 Urine Glucose (UA) Negative (Negative) 10/21/19 18:37 Urine Ketones Negative (Negative) 10/21/19 18:37 Urine Nitrite Negative (Negative) 10/21/19 18:37 Ur Leukocyte Esterase Negative (Negative) 10/21/19 18:37 10/22/19 10/22/19 10/22/19 14:06 11:43 05:42 POC Glucose 113 H 110 H 121 H Electrocardiogram Date: 10/21/19 Findings: + NSR @ (63) Other Testing CT abd pelvis IV con only CT DOSE: 1451.36 mGy.cm HISTORY: Pain LUQ, RUQ and epigastric abdominal pain TECHNIQUE: Multiaxial CT images of the abdomen and pelvis were performed following the use of intravenous contrast. A dose lowering technique was utilized adhering to the principles of ALARA. COMPARISON STUDY: 11/07/2018 FINDINGS: Lung bases are clear. Fatty replacement of the liver. Several gall stones are present. Kidneys enhance uniformly. No evidence for hydronephrosis. Bowel pattern is nonobstructive. The appendix is suboptimally seen L there is no evidence for an inflammatory process of the right lower quadrant. Bladder is midline. There is no free fluid within the pelvic cul-de-sac. IMPRESSION: 1. Gallstones. 2. Fatty replacement of the liver. 3. Otherwise negative study abdomen and pelvis. ACT 112: Negative or not required by law. The above report was generated using voice recognition software. It may contain grammatical, syntax or spelling errors. Electronically signed by: Shabbir Almaraz M.D. 10/21/2019 8:00 PM Dictated: 10/21/191955 Transcribed: 10/21/191955
--- NOTE | 2019-10-22 17:45 | Electrocardiogram Report ---
Test Reason : Blood Pressure : / mmHG Vent. Rate : 063 BPM Atrial Rate : 063 BPM P-R Int : 150 ms QRS Dur : 078 ms QT Int : 384 ms P-R-T Axes : 072 071 082 degrees QTc Int : 392 ms Poor data quality, interpretation may be adversely affected Normal sinus rhythm Normal ECG When compared with ECG of 09-AUG-2019 00:46, No significant change was found Confirmed by Eulalio Roman ([id number]) on 10/22/2019 5:44:39 PM Referred By: Chantal Barton Confirmed By:Javier Roman
[2019-10-23] MEDS: LACTATED RINGER'S 1,000 ML IV SCH ×4 (02:52→16:34)
[2019-10-23] MEDS: HYDROmorphone INJ 0.5 MG/0.5 ML SYR IV PRN ×2 (02:52→07:52)
[2019-10-23 05:19] LABS: Hematocrit (blood only) 39.8 % (42-52); Hemoglobin 13.8 g/dL (14.0-18.0); Mean Corpuscular Hemoglobin 33.3 pg (25-34); Mean Corpuscular Hgb Conc 34.7 g/dL (32-36); Mean Corpuscular Volume 96.1 fL (80-100); Mean Platelet Volume 9.5 fL (7.4-10.4); Platelet Count 155 K/uL (130-400); RDW Standard Deviation 42.1 fL (36.4-46.3); Red Blood Count 4.14 M/uL (4.7-6.1)
[2019-10-23 05:37] LABS: INR 1.1 (0.9-1.1); Prothrombin Time 11.5 Seconds (9.0-12.0)
[2019-10-23 05:46] LABS: Calcium 8.3 mg/dl (8.5-10.1); Creatinine Clr Calc Pharmacy 195.3 ml/min; Est GFR (African American) 136.9; Est GFR (Non-African American) 118.1; Potassium 3.9 mmol/L (3.5-5.1)
[2019-10-23] MEDS: INSULIN ASPART 100 UNITS/ML 3 ML PEN SC SCH ×4 (06:36→21:24)
[2019-10-23] MEDS: NICOTINE 21 MG/24 HR TDSY TD SCH (07:52)
--- NOTE | 2019-10-23 08:14 | Hospitalist Progress Note ---
Date of Service October 23, 2019 Assessment & Plan (1) Abdominal pain: Gallstone pancreatitis -Patient presenting from home for evaluation of abdominal pain has been ongoing and worsening for the past 2 months -Review of prior labs show patient has had mildly elevated LFTs over the past few months -In the ED, AST and alk phos mildly elevated with normal total bili and ALT; lipase mildly elevated 501 -CT ABD/pelvis showing gallstones -Given gallstones on CT ABD/pelvis, poss. Choledocholithiasis vs gallstone pancreatitis vs biliary colic -No signs of acute cholecystitis -MRCP normal -N.p.o., IVF, pain and nausea control on admission -Noted the patient is on Tradjenta (however not a new medication), that could possibly be contributing to some mild pancreatitis as well -GI consulted - pt likely passed a stone in the setting of mild gallstone pancreatitis -General surgery consulted - pt is now s/p laparoscopic cholecystectomy (10/23) (2) DM type 2 (diabetes mellitus, type 2): -Hgb A1c 7.1 10/06/2019 -Hold oral agents and utilize NovoLog per protocol while hospitalized (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 -Continue PPI (4) Hypertension: -Hold HCTZ while receiving IVF -BP currently controlled (5) Dyslipidemia: -Hold statin due to mildly elevated LFTs (6) DVT prophylaxis: -SCDs, ambulate Subjective Patient is lying in bed, in no acute distress, denies any fevers, chills, chest pain, shortness of breath. Reports abdominal pain mostly in RUQ,and epigastric region. S/p cholecystectomy earlier today by general surgery. Pt also says that a bag of saline fell on his abdomen after surgery in the elevator. Concerned that it caused more abd. pain. Will discuss with the nursing staff to find out more about the incident and will also notify the surgeon. Review of Systems Review of Systems: All systems reviewed & are unremarkable except as noted in HPI & below Constitutional: no fever and no chills Respiratory: no cough and no dyspnea Cardiovascular: no chest pain, no dyspnea on exertion and no palpitations Gastrointestinal: + abdominal pain; no vomiting Physical Exam Physical Exam: Constitutional: Middle-aged obese male,WD/WN, laying in bed, in no acute distress Eyes: PERRL, EOMI, conjunctivae normal, anicteric sclerae ENMT: external ear and nose normal, oropharynx normal Respiratory: normal respiratory effort, lungs clear to auscultation Cardiovascular: Rate/Rhythm: regular rate and regular rhythm Vessels: normal peripheral pulses Extremities: no edema Gastrointestinal (Abdomen): Inspection/Auscultation: normal bowel sounds Percussion/Palpation: + abdomen tender (RUQ, mid abdomen, Epigastric area) abdomen soft, several small incisions s/p surg.small amount drainage noted Musculoskeletal: no cyanosis or clubbing, extremities motor strength 5/5, moves extremities spontaneously Skin: no rashes, warm and dry Neurologic: PERRL, EOMI, accommodation nl, no face palsy, no dysarthria, moves extremities spontaneously Psychiatric: A+Ox3, euthymic affect Results & Data Vital Signs (Past 12 Hours) Vital Signs Temp Pulse Resp BP Pulse Ox 10/23/19 07:14 36.6 C 61 17 142/89 H 96 10/23/19 00:01 36.6 C 62 15 146/81 H 97 Laboratory Results 10/23/19 10/23/19 10/23/19 Range/Units 06:09 05:04 05:04 WBC (4.8-10.8) K/uL RBC (4.7-6.1) M/uL Hgb (14.0-18.0) g/dL Hct (42-52) % MCV (80-100) fL MCH (25-34) pg MCHC (32-36) g/dL RDW Std Deviation (36.4-46.3) fL RDW Coeff of Shabnam (11.5-14.5) % Plt Count (130-400) K/uL MPV (7.4-10.4) fL PT 11.5 (9.0-12.0) Seconds INR 1.1 (0.9-1.1) Sodium 138 (136-145) mmol/L Potassium 3.9 (3.5-5.1) mmol/L Chloride 106 (98-107) mmol/L Carbon Dioxide 30 (21-32) mmol/L Anion Gap 2.0 L (3-11) BUN 7 (7-18) mg/dl Creatinine 0.62 (0.6-1.4) mg/dl Est Cr Clr Drug Dosing 195.3 ml/min Est GFR ( Amer) 136.9 Est GFR (Non-Af Amer) 118.1 POC Glucose 95 (70-99) mg/dl Fasting Glucose 93 (70-99) mg/dl Calcium 8.3 L (8.5-10.1) mg/dl 10/23/19 10/23/19 10/22/19 Range/Units 05:04 00:01 20:40 WBC 6.90 (4.8-10.8) K/uL RBC 4.14 L (4.7-6.1) M/uL Hgb 13.8 L (14.0-18.0) g/dL Hct 39.8 L (42-52) % MCV 96.1 (80-100) fL MCH 33.3 (25-34) pg MCHC 34.7 (32-36) g/dL RDW Std Deviation 42.1 (36.4-46.3) fL RDW Coeff of Shabnam 12.0 (11.5-14.5) % Plt Count 155 (130-400) K/uL MPV 9.5 (7.4-10.4) fL PT (9.0-12.0) Seconds INR (0.9-1.1) Sodium (136-145) mmol/L Potassium (3.5-5.1) mmol/L Chloride (98-107) mmol/L Carbon Dioxide (21-32) mmol/L Anion Gap (3-11) BUN (7-18) mg/dl Creatinine (0.6-1.4) mg/dl Est Cr Clr Drug Dosing ml/min Est GFR ( Amer) Est GFR (Non-Af Amer) POC Glucose 109 H 127 H (70-99) mg/dl Fasting Glucose (70-99) mg/dl Calcium (8.5-10.1) mg/dl 10/22/19 10/22/19 10/22/19 Range/Units 17:07 14:06 11:43 WBC (4.8-10.8) K/uL RBC (4.7-6.1) M/uL Hgb (14.0-18.0) g/dL Hct (42-52) % MCV (80-100) fL MCH (25-34) pg MCHC (32-36) g/dL RDW Std Deviation (36.4-46.3) fL RDW Coeff of Shabnam (11.5-14.5) % Plt Count (130-400) K/uL MPV (7.4-10.4) fL PT (9.0-12.0) Seconds INR (0.9-1.1) Sodium (136-145) mmol/L Potassium (3.5-5.1) mmol/L Chloride (98-107) mmol/L Carbon Dioxide (21-32) mmol/L Anion Gap (3-11) BUN (7-18) mg/dl Creatinine (0.6-1.4) mg/dl Est Cr Clr Drug Dosing ml/min Est GFR ( Amer) Est GFR (Non-Af Amer) POC Glucose 129 H 113 H 110 H (70-99) mg/dl Fasting Glucose (70-99) mg/dl Calcium (8.5-10.1) mg/dl Medications Administered Current Inpatient Medications Acetaminophen (Tylenol) 650 mg PO Q4H PRN PRN Reason: pain/fever Stop: 11/20/19 22:26 Dextrose (Dextrose 50%) 25 - 50 ml IV UD PRN; Protocol PRN Reason: Hypoglycemia Protocol Stop: 11/20/19 22:54 Glucagon (Glucagen) 1 mg SQ UD PRN; Protocol PRN Reason: Hypoglycemia Protocol Stop: 11/20/19 22:54 Glucose (Dex4 Glucose) 4 - 8 tabs PO UD PRN; Protocol PRN Reason: Hypoglycemia Protocol Stop: 11/20/19 22:54 Glucose (Glucose 40%) 15 - 30 gm PO UD PRN; Protocol PRN Reason: Hypoglycemia Protocol Stop: 11/20/19 22:54 Hydromorphone HCl (Dilaudid) 0.5 mg IV Q3H PRN PRN Reason: Pain Stop: 11/04/19 22:26 Last Admin: 10/23/19 07:52 Dose: 0.5 mg Documented by: Lactated Ringer's (Lr) 1,000 mls @ 250 mls/hr IV .Q4H MICHAEL Stop: 11/20/19 22:26 Last Admin: 10/23/19 06:48 Dose: 250 mls/hr Documented by: Insulin Aspart (Novolog Flexpen) 0 units SC Q6 MICHAEL Stop: 11/22/19 05:59 Last Admin: 10/23/19 06:36 Dose: Not Given Documented by: Miscellaneous (Carbohydrates For Hypoglycemia) 15 - 30 gm PO UD PRN PRN Reason: Hypoglycemia Protocol Stop: 11/20/19 22:54 Miscellaneous (Remove Nicoderm Patch) 1 ea N/A DAILY@0859 [facility] Stop: 11/22/19 08:58 Last Admin: 10/23/19 07:52 Dose: 1 ea Documented by: Nicotine (Nicoderm Cq) 21 mg TD [facility] Stop: 11/21/19 01:59 Last Admin: 10/23/19 07:52 Dose: 21 mg Documented by: Ondansetron HCl (Zofran) 4 mg IV Q6H PRN PRN Reason: Nausea Stop: 11/21/19 15:36 Last Admin: 10/22/19 16:56 Dose: 4 mg Documented by: Pantoprazole Sodium (Protonix) 40 mg PO [facility] Stop: 11/21/19 08:59 Last Admin: 10/22/19 09:42 Dose: 40 mg Documented by:
[2019-10-23] MEDS: PANTOprazole 40 MG TAB PO SCH (08:32)
[2019-10-23] MEDS ORDERED: LIDOCAINE HCL 2% 2 ML VIAL/AMP(20MG/ML) INFIL ONE ×2 (11:39→12:23)
[2019-10-23] MEDS ORDERED: DEXAMETHASONE SOD INJ 4 MG/ML VIAL ONE (11:39)
[2019-10-23] MEDS ORDERED: NEOSTIGMINE METHYLSULFATE 5 MG/5 ML SYR ONE (11:40)
[2019-10-23] MEDS ORDERED: fentaNYL citrate 100 MCG/2 ML VIAL ONE ×2 (11:40→13:39)
[2019-10-23] MEDS ORDERED: ROCURONIUM BROMIDE 10 MG/ML 5 ML VIAL ONE ×2 (11:40→12:23)
[2019-10-23] MEDS ORDERED: MIDAZOLAM HCL 1 MG/ML 2ML VIAL ONE (11:40)
[2019-10-23] MEDS ORDERED: GLYCOPYRROLATE 0.2 MG/ML VIAL ONE (11:40)
[2019-10-23] MEDS ORDERED: PROPOFOL IV EMULSION 10 MG/ML 20 ML VIAL IV ONE ×2 (11:40→12:23)
[2019-10-23] MEDS ORDERED: ONDANSETRON INJ 2 MG/ML 2 ML VIAL ONE ×2 (11:40→12:23)
--- NOTE | 2019-10-23 12:57 | History & Physical Bridge Note ---
Date of Service October 23, 2019 History & Physical Bridge Note I have examined the patient, reviewed the History & Physical and in the interval since the performance of the History & Physical I have noted the following changes of clinical significance: no changes noted discussed options/risks ( bleeding/infection/bile leaks or injury , injury to other organs, dvt/pe/mi/cva etc...) questions answered. will proceed with lap isha/possible cholangiogram. pt agreeable.
[2019-10-23] MEDS ORDERED: BUPIVACAINE/EPINEPHRINE 0.5% MPF 1:200,000 10 ML VIAL ONE (12:58)
[2019-10-23] MEDS ORDERED: KETOROLAC 30 MG/ML VIAL IV PRN (13:01)
[2019-10-23] MEDS ORDERED: PROMETHAZINE HCL 12.5 MG in SODIUM CHLORIDE 0.9% 50 ML IV PRN (13:01)
[2019-10-23] MEDS ORDERED: ONDANSETRON INJ 2 MG/ML 2 ML VIAL IV PRN (13:01)
[2019-10-23] MEDS ORDERED: LABETALOL HCL IV 5 MG/ML 20ML IV PRN (13:01)
[2019-10-23] MEDS ORDERED: ATROPINE SULFATE 0.1 MG/ML 10ML SYR IV PRN (13:01)
[2019-10-23] MEDS ORDERED: CEFAZOLIN 2000MG 2,000 MG/15 ML SYR IV ONE (13:32)
[2019-10-23] MEDS ORDERED: CONRAY 60% 50 ML VIAL INSTIL ONE (14:26)
--- NOTE | 2019-10-23 14:44 | Operative Report ---
PG Post Operative Report Pre & Post Diagnosis Operation Date: 10/23/19 11:00 Pre-Op Diagnosis: gallstone pancreatitis Post-Op Diagnosis: gallstone pancreatitis; cirrhosis of liver I identified the patient and participated in the time-out.: Yes Procedure Operation Date: 10/23/19 11:00 Actual Procedures p Laparoscopic Cholecystectomy, Liver Biopsy (Not Applicable) - Marty Fernando DO Surgeon Marty Fernando DO Grease Remover esdras Hennessy Estimated Blood Loss 10 Findings Consistent with Post-Op Diagnosis Specimens 1. gallbladder 2. liver bx Description of Procedure After informed consent was obtained the patient was taken to the operating room and placed in the supine position. After successful intubation the abdomen was sterilely prepped and draped in usual fashion. A periumbilical incision was made with an 11 blade scalpel and carried down through the soft tissue using electrocautery. The anterior rectus fascia was opened using electrocautery and 2 #0 Vicryl stay sutures were placed. The peritoneum was elevated with hemostats and incised under direct vision using Metzenbaum scissors. A finger sweep was performed and a 12 mm Olivera trocar was placed. The abdomen was insufflated to 18 mmHg. The laparoscope was inserted and the abdomen was examined in 360. The patient had an abnormal cobblestone appearance to the liver consistent with cirrhosis. Also the gallbladder was markedly distended. Otherwise no other gross abnormalities were identified. A subxiphoid 5 mm port and 2 right upper quadrant 5 mm ports were placed under direct vision. The patient was placed in a reverse Trendelenburg position and slightly airplaned to the left. Because of the distention of the gallbladder I drained about 20 cc of bile with a gallbladder needle. Next, the gallbladder was grasped and elevated superiorly and laterally. Because of the cirrhotic nature of the liver manipulation of the liver and gallbladder was somewhat difficult. A [place] dissector was used to take down adhesions around the neck of the gallbladder. The cystic duct was identified and skeletonized. It was clipped twice proxi joe and once distally and transected using a laparoscopic scissor. In similar fashion the cystic artery was identified and skeletonized clipped and divided. The gallbladder was removed from the gallbladder fossa with electrocautery. There was a secondary accessory type of duct about midway up the body of the gallbladder running into the liver. This was clipped and divided as well. The gallbladder was placed into an Endo Catch bag. Thorough irrigation was performed. At the end of the procedure there was adequate hemostasis and no evidence of any bile leaks. I used an automatic Ambrosio-Cut needle biopsy device to perform 3 core needle biopsies of the right lobe of the liver. The bleeding from these biopsies were controlled using electrocautery . A final look around the abdomen showed no other abnormalities. The gallbladder and trochars were all removed and the abdomen was desufflated. The fascia of the camera port was closed using 0 Vicryl in a [id number] fashion. All the wounds were irrigated and closed using 4-0 Monocryl. Marcaine was injected around them for postoperative analgesia and skin glue used as a dressing. The patient was awakened, extubated and transferred to recovery in stable condition. My physician's data entry assistant was present throughout the entire case... helped with prepping the patient. With exposure for trocar placement, as well as retracted the gallbladder throughout the case and also assisted with wound closure and dressing placement. I attest to the content of the Intraoperative Record and any orders documented therein. Any exceptions are noted below.
[2019-10-23] MEDS: HYDROmorphone INJ 1 MG/ML SYRINGE IV PRN ×4 (15:14→15:29)
--- NOTE | 2019-10-23 15:42 | Anesthesiology Progress Note ---
Date of Service October 23, 2019 Anesthesia Post Procedure Vital Signs Vital Signs: Temp Pulse Pulse Resp BP Pulse Ox 10/23/19 15:30 84 21 165/82 H 93 10/23/19 15:20 93 H 18 171/83 H 94 10/23/19 15:10 79 24 166/83 H 96 10/23/19 15:00 76 23 168/85 H 96 10/23/19 14:54 37.1 C 80 26 H 173/78 H 97 10/23/19 11:08 37 C 65 18 166/81 H 94 10/23/19 07:14 36.6 C 61 17 142/89 H 96 10/23/19 00:01 36.6 C 62 15 146/81 H 97 Pain Intensity Abdomen: Pain Intensity: 6 Transfer of Care Handoff Completed per policy Notes Mental Status: alert / awake / arousable Patient Amnestic to Procedure: Yes Nausea / Vomiting: adequately controlled Pain: adequately controlled Airway Patency, RR, SpO2: stable & adequate BP & HR: stable & adequate Hydration State: stable & adequate Anesthetic Complications: no major complications apparent
[2019-10-23] MEDS ORDERED: HYDROCODONE/ACETAMOPHEN 5/325MG TAB PO PRN (16:02)
[2019-10-23] MEDS ORDERED: Nursing to Pharmacy Communication ONE (16:18)
[2019-10-23] MEDS: MoRPHine SULFATE 2 MG/ML CARP IV PRN (16:30)
[2019-10-23] MEDS: HYDROCODONE/ACETAMOPHEN 5/325MG TAB PO PRN (18:27)
[2019-10-23] MEDS ORDERED: OXYCODONE HCL IR 5 MG TAB (IMMEDIATE RELEASE) PO PRN (18:58)
[2019-10-23] MEDS: MoRPHine SULFATE 4 MG/ML 1 ML CARP\\VIAL IV PRN (21:24)
[2019-10-24] MEDS: MoRPHine SULFATE 4 MG/ML 1 ML CARP\\VIAL IV PRN ×4 (01:14→16:59)
[2019-10-24] MEDS: LACTATED RINGER'S 1,000 ML IV SCH ×2 (02:54→15:13)
[2019-10-24 06:08] LABS: Hematocrit (blood only) 40.8 % (42-52); Hemoglobin 14.4 g/dL (14.0-18.0); Mean Corpuscular Hemoglobin 33.7 pg (25-34); Mean Corpuscular Hgb Conc 35.3 g/dL (32-36); Mean Corpuscular Volume 95.6 fL (80-100); Mean Platelet Volume 9.9 fL (7.4-10.4); Platelet Count 171 K/uL (130-400); RDW Coefficient of Variation 12.1 % (11.5-14.5); Red Blood Count 4.27 M/uL (4.7-6.1)
[2019-10-24 06:40] LABS: Albumin Level 3.2 gm/dl (3.4-5.0); Bilirubin Direct 0.2 mg/dl (0-0.2); Calcium 8.6 mg/dl (8.5-10.1); Creatinine Clr Calc Pharmacy 165.9 ml/min; Est GFR (Non-African American) 110.5; Potassium 3.5 mmol/L (3.5-5.1)
[2019-10-24 06:42] LABS: Bilirubin,Total 1.1 mg/dl (0.2-1); Total Protein 7.1 gm/dl (6.4-8.2)
[2019-10-24] MEDS: HYDROCODONE/ACETAMOPHEN 5/325MG TAB PO PRN (07:02)
--- NOTE | 2019-10-24 07:35 | Anesthesiology Progress Note ---
Date of Service October 24, 2019 Anesthesia Post Procedure Vital Signs Vital Signs: Temp Pulse Pulse Resp BP Pulse Ox 10/24/19 03:28 36.7 C 77 16 138/80 92 10/23/19 22:55 37.0 C 86 18 151/74 H 91 10/23/19 19:15 36.9 C 93 H 16 164/83 H 97 10/23/19 17:57 36.4 C L 92 H 18 159/90 H 98 10/23/19 16:58 36.7 C 88 16 167/94 H 97 10/23/19 16:28 36.6 C 82 18 174/80 H 98 10/23/19 16:00 36.9 C 91 H 16 168/83 H 97 10/23/19 15:50 83 19 165/76 H 93 10/23/19 15:40 37.0 C 84 13 163/83 H 96 10/23/19 15:30 84 21 165/82 H 93 10/23/19 15:20 93 H 18 171/83 H 94 10/23/19 15:10 79 24 166/83 H 96 10/23/19 15:00 76 23 168/85 H 96 10/23/19 14:54 37.1 C 80 26 H 173/78 H 97 10/23/19 11:08 37 C 65 18 166/81 H 94 Pain Intensity Abdomen: Pain Intensity: 8 Notes Mental Status: alert / awake / arousable and participated in evaluation Patient Amnestic to Procedure: Yes Nausea / Vomiting: adequately controlled Pain: adequately controlled Airway Patency, RR, SpO2: stable & adequate BP & HR: stable & adequate Hydration State: stable & adequate Anesthetic Complications: Pt Satisfied with anesthetic care
[2019-10-24] MEDS: PANTOprazole 40 MG TAB PO SCH (08:48)
[2019-10-24] MEDS: NICOTINE 21 MG/24 HR TDSY TD SCH (08:48)
[2019-10-24] MEDS: INSULIN ASPART 100 UNITS/ML 3 ML PEN SC SCH ×4 (08:55→21:10)
--- NOTE | 2019-10-24 09:52 | Surgery Progress Note ---
Date of Service October 24, 2019 Assessment & Plan (1) Gallstones: POD 1 lap appy mild LFT elevations, chronic and will await results of liver biopsy f/u clinic 1 week ok for d/c from surgical standpoint as above. doing as expected. f/u with me in 7-10 days. Subjective c/o umbilical pain, tolerating reg diet Physical Exam Gastrointestinal (Abdomen): Inspection/Auscultation: + abdominal surgical incision (dry) Percussion/Palpation: abdomen soft Results & Data Vital Signs (Past 12 Hours) Vital Signs Temp Pulse Resp BP Pulse Ox 10/24/19 07:54 36.7 C 69 18 164/85 H 94 10/24/19 03:28 36.7 C 77 16 138/80 92 10/23/19 22:55 37.0 C 86 18 151/74 H 91 PG Care Time/CCT Total # of Minutes Spent Total Time Spent with Patient: Total time spent is greater than 50% in coordination of care (as documented) at patient's floor/unit and/or counseling patient: Coding Level of Care Code None Diagnoses Gallstones K80.20
[2019-10-24] MEDS ORDERED: bisacodyL 5 MG TABEC PO PRN (18:28)
--- NOTE | 2019-10-24 18:31 | Hospitalist Progress Note ---
Date of Service October 24, 2019 Assessment & Plan (1) Abdominal pain: Gallstone pancreatitis -Patient presenting from home for evaluation of abdominal pain has been ongoing and worsening for the past 2 months -Review of prior labs show patient has had mildly elevated LFTs over the past few months -In the ED, AST and alk phos mildly elevated with normal total bili and ALT; lipase mildly elevated 501 -CT ABD/pelvis showing gallstones -Given gallstones on CT ABD/pelvis, poss. Choledocholithiasis vs gallstone pancreatitis vs biliary colic -No signs of acute cholecystitis -MRCP normal -N.p.o., IVF, pain and nausea control on admission -Noted the patient is on Tradjenta (however not a new medication), that could possibly be contributing to some mild pancreatitis as well -GI consulted - pt likely passed a stone in the setting of mild gallstone pancreatitis -General surgery consulted - pt is now s/p laparoscopic cholecystectomy and liver biopsy (10/23) -pt is doing well, pain is better controlled, tolerates diet, ambulating (2) DM type 2 (diabetes mellitus, type 2): -Hgb A1c 7.1 10/06/2019 -Hold oral agents and utilize NovoLog per protocol while hospitalized (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 Abdominal pain is better controlled today, pt refuses to take any pain medications containing tylenol. is at the bedside. Pt denies any fever, chills, chest pain, shortness of breath, nausea, vomiting. he is passing flatus and ambulating. Review of Systems Review of Systems: All systems reviewed & are unremarkable except as noted in HPI & below ROS per HPI, all other systems reviewed and negative Constitutional: no fever and no chills Respiratory: no cough and no dyspnea Cardiovascular: no chest pain, no dyspnea on exertion and no palpitations Gastrointestinal: + abdominal pain (improved); no vomiting Physical Exam Physical Exam: Constitutional: Middle-aged obese male,WD/WN, sitting up in bed, in no acute distress, eating Eyes: PERRL, EOMI, conjunctivae normal, anicteric sclerae ENMT: external ear and nose normal, oropharynx normal Respiratory: normal respiratory effort, lungs clear to auscultation Cardiovascular: Rate/Rhythm: regular rate and regular rhythm Vessels: normal peripheral pulses Extremities: no edema Gastrointestinal (Abdomen): Inspection/Auscultation: normal bowel sounds Percussion/Palpation: + abdomen tender (RUQ), other areas not tender anymore, abdomen soft, several small incisions s/p surg., no significant erythema, edema or drainage noted Musculoskeletal: no cyanosis or clubbing, extremities motor strength 5/5, moves extremities spontaneously Skin: no rashes, warm and dry Neurologic: PERRL, EOMI, accommodation nl, no face palsy, no dysarthria, moves extremities spontaneously Psychiatric: A+Ox3, euthymic affect Results & Data ([facility] [place]) Vital Signs (Past 12 Hours) Vital Signs Temp Pulse Resp BP Pulse Ox 10/24/19 15:26 37.3 C 85 18 160/82 H 95 10/24/19 12:30 36.9 C 69 18 151/81 H 94 10/24/19 07:54 36.7 C 69 18 164/85 H 94 Laboratory Results 10/24/19 10/24/19 10/24/19 Range/Units 17:00 12:10 08:01 WBC (4.8-10.8) K/uL RBC (4.7-6.1) M/uL Hgb (14.0-18.0) g/dL Hct (42-52) % MCV (80-100) fL MCH (25-34) pg MCHC (32-36) g/dL RDW Std Deviation (36.4-46.3) fL RDW Coeff of Shabnam (11.5-14.5) % Plt Count (130-400) K/uL MPV (7.4-10.4) fL Sodium (136-145) mmol/L Potassium (3.5-5.1) mmol/L Chloride (98-107) mmol/L Carbon Dioxide (21-32) mmol/L Anion Gap (3-11) BUN (7-18) mg/dl Creatinine (0.6-1.4) mg/dl Est Cr Clr Drug Dosing ml/min Est GFR ( Amer) Est GFR (Non-Af Amer) POC Glucose 179 H 188 H 132 H (70-99) mg/dl Fasting Glucose (70-99) mg/dl Calcium (8.5-10.1) mg/dl Total Bilirubin (0.2-1) mg/dl Direct Bilirubin (0-0.2) mg/dl AST (15-37) U/L ALT (12-78) U/L Alkaline Phosphatase (45-117) U/L Total Protein (6.4-8.2) gm/dl Albumin (3.4-5.0) gm/dl 10/24/19 10/24/19 10/23/19 Range/Units 05:35 05:35 21:07 WBC 9.60 (4.8-10.8) K/uL RBC 4.27 L (4.7-6.1) M/uL Hgb 14.4 (14.0-18.0) g/dL Hct 40.8 L (42-52) % MCV 95.6 (80-100) fL MCH 33.7 (25-34) pg MCHC 35.3 (32-36) g/dL RDW Std Deviation 42.0 (36.4-46.3) fL RDW Coeff of Shabnam 12.1 (11.5-14.5) % Plt Count 171 (130-400) K/uL MPV 9.9 (7.4-10.4) fL Sodium 136 (136-145) mmol/L Potassium 3.5 (3.5-5.1) mmol/L Chloride 101 (98-107) mmol/L Carbon Dioxide 31 (21-32) mmol/L Anion Gap 4.0 (3-11) BUN 6 L (7-18) mg/dl Creatinine 0.73 (0.6-1.4) mg/dl Est Cr Clr Drug Dosing 165.9 ml/min Est GFR ( Amer) 128.0 Est GFR (Non-Af Amer) 110.5 POC Glucose 169 H (70-99) mg/dl Fasting Glucose 121 H (70-99) mg/dl Calcium 8.6 (8.5-10.1) mg/dl Total Bilirubin 1.1 H (0.2-1) mg/dl Direct Bilirubin 0.2 (0-0.2) mg/dl AST 90 H (15-37) U/L ALT 74 (12-78) U/L Alkaline Phosphatase 134 H (45-117) U/L Total Protein 7.1 (6.4-8.2) gm/dl Albumin 3.2 L (3.4-5.0) gm/dl Medications Administered Current Inpatient Medications Hydrocodone Bitart/Acetaminophen ([place] 5/325) 2 tab PO Q4H PRN PRN Reason: Pain Stop: 11/06/19 16:01 Last Admin: 10/24/19 07:02 Dose: 2 tab Documented by: Bisacodyl (Dulcolax) 5 mg PO BID PRN PRN Reason: Constipation Stop: 11/23/19 18:27 Dextrose (Dextrose 50%) 25 - 50 ml IV UD PRN; Protocol PRN Reason: Hypoglycemia Protocol Stop: 11/20/19 22:54 Glucagon (Glucagen) 1 mg SQ UD PRN; Protocol PRN Reason: Hypoglycemia Protocol Stop: 11/20/19 22:54 Glucose (Dex4 Glucose) 4 - 8 tabs PO UD PRN; Protocol PRN Reason: Hypoglycemia Protocol Stop: 11/20/19 22:54 Glucose (Glucose 40%) 15 - 30 gm PO UD PRN; Protocol PRN Reason: Hypoglycemia Protocol Stop: 11/20/19 22:54 Lactated Ringer's (Lr) 1,000 mls @ 80 mls/hr IV .[id number] [facility] Stop: 11/22/19 16:59 Last Admin: 10/24/19 15:13 Dose: 80 mls/hr Documented by: Insulin Aspart (Novolog Flexpen) 0 units SC ACHS [facility] Stop: 11/22/19 05:59 Last Admin: 10/24/19 13:05 Dose: 5 units Documented by: Miscellaneous (Carbohydrates For Hypoglycemia) 15 - 30 gm PO UD PRN PRN Reason: Hypoglycemia Protocol Stop: 11/20/19 22:54 Miscellaneous (Remove Nicoderm Patch) 1 ea N/A DAILY@[id number] [facility] Stop: 11/22/19 08:58 Last Admin: 10/24/19 09:29 Dose: 1 ea Documented by: Morphine Sulfate (Morphine Sulfate) 2 mg IV Q2H PRN PRN Reason: Pain Stop: 11/06/19 16:01 Last Admin: 10/23/19 16:30 Dose: 2 mg Documented by: Morphine Sulfate (Morphine Sulfate) 4 mg IV Q2H PRN PRN Reason: Pain Stop: 11/06/19 16:01 Last Admin: 10/24/19 16:59 Dose: 4 mg Documented by: Nicotine (Nicoderm Cq) 21 mg TD [facility] Stop: 11/21/19 01:59 Last Admin: 10/24/19 08:48 Dose: 21 mg Documented by: Ondansetron HCl (Zofran) 4 mg IV Q6H PRN PRN Reason: Nausea Stop: 11/21/19 15:36 Last Admin: 10/22/19 16:56 Dose: 4 mg Documented by: Oxycodone HCl (Roxicodone Immediate Rel) 5 mg PO Q4H PRN PRN Reason: Pain Stop: 11/06/19 18:57 Last Admin: 10/24/19 08:48 Dose: 5 mg Documented by: Oxycodone HCl (Roxicodone Immediate Rel) 10 mg PO QID PRN PRN Reason: Severe Pain Stop: 11/07/19 18:25 Pantoprazole Sodium (Protonix) 40 mg PO [facility] Stop: 11/21/19 08:59 Last Admin: 10/24/19 08:48 Dose: 40 mg Documented by: Polyethylene Glycol (Miralax Powder Packet) 17 gm PO DAILY [facility] Stop: 11/23/19 18:29
[2019-10-24] MEDS ORDERED: POTASSIUM CHLORIDE 20 MEQ TABCR PO STA (18:33)
[2019-10-24] MEDS: OXYCODONE HCL IR 5 MG TAB (IMMEDIATE RELEASE) PO PRN (19:07)
[2019-10-24] MEDS: POLYETHYLENE (MIRALAX) 17 GM PACK PO SCH (19:07)
[2019-10-24] MEDS: MoRPHine SULFATE 2 MG/ML CARP IV PRN (21:14)
[2019-10-25] MEDS: OXYCODONE HCL IR 5 MG TAB (IMMEDIATE RELEASE) PO PRN (03:50)
[2019-10-25] MEDS: LACTATED RINGER'S 1,000 ML IV SCH (03:51)
[2019-10-25] MEDS: NICOTINE 21 MG/24 HR TDSY TD SCH (08:13)
[2019-10-25] MEDS: PANTOprazole 40 MG TAB PO SCH (08:14)
[2019-10-25] MEDS: POLYETHYLENE (MIRALAX) 17 GM PACK PO SCH (08:14)
[2019-10-25] MEDS: HYDROCODONE/ACETAMOPHEN 5/325MG TAB PO PRN (08:20)
[2019-10-25] MEDS: INSULIN ASPART 100 UNITS/ML 3 ML PEN SC SCH ×2 (09:10→13:32)
--- NOTE | 2019-10-25 10:06 | Discharge Summary ---
Date of Service October 25, 2019 Admission HPI Per Admitting Provider 48-year-old male who presents the ED for evaluation abdominal pain. Patient reports ongoing abdominal pain for the past 2 months. Pain has been progressively worsening. Reports pain was initially located in the epigastric area however has been radiating out to the right upper and left upper quadrants. Patient also now has some pinpoint tenderness along the left side of the abdomen. Patient denies any specific causative relieving factors. Pain does not seem to be made worse after eating. He denies any associated nausea, vomiting, diarrhea. No fevers or chills. Denies chest pain shortness of breath. Reports intermittent episodes of lightheadedness however no dizziness or syncopal event. He denies any urinary symptoms. Patient has been noted to have mildly elevated LFTs recently. Labs were obtained as an outpatient today that showed mildly elevated LFTs as well as lipase. Right upper quadrant ultrasound was obtained, results are not yet available. Due to worsening pain, patient presented to the ED for further evaluation. In the ED, patient is found to have elevated AST and alk phos with normal total bili and ALT. Lipase mildly elevated at 501. CT ABD/pelvis showing gallstones and fatty liver. Patient is hemodynamically stable. He was given 2 doses of IV morphine, IV Zofran, IVF. Admission Exam Per Admitting Provider Constitutional: WD/WN, vitals as above Eyes: PERRL, conjunctivae normal, anicteric sclerae ENMT: external ear and nose normal, oropharynx normal Respiratory: normal respiratory effort, lungs clear to auscultation Cardiovascular: Rate/Rhythm: regular rate and regular rhythm Vessels: normal peripheral pulses Extremities: no edema Gastrointestinal (Abdomen): Inspection/Auscultation: normal bowel sounds Percussion/Palpation: + abdomen tender (Left lateral mid abdomen, Epigastric) and abdomen soft; no hepatosplenomegaly Musculoskeletal: no cyanosis or clubbing, extremities motor strength 5/5 Skin: no rashes, warm and dry Neurologic: PERRL, EOMI, accommodation nl, no face palsy, no dysarthria Psychiatric: A+Ox3, euthymic affect Principal Diagnosis Gallstone pancreatitis status post laparoscopic cholecystectomy, and fatty liver s/p liver biopsy Discharge Exam Constitutional: Middle-aged obese male,WD/WN, in no acute distress Eyes: PERRL, EOMI, conjunctivae normal, anicteric sclerae ENMT: external ear and nose normal, oropharynx normal Respiratory: normal respiratory effort, lungs clear to auscultation Cardiovascular: Rate/Rhythm: regular rate and regular rhythm Vessels: normal peripheral pulses Extremities: no edema Gastrointestinal (Abdomen): Inspection/Auscultation: normal bowel sounds Percussion/Palpation: + abdomen tender to palpation at RUQ, other areas of abdomen not tender anymore, abdomen soft, several small incisions s/p surg., no significant erythema, edema or drainage noted Musculoskeletal: no cyanosis or clubbing, extremities motor strength 5/5, moves extremities spontaneously Skin: no rashes, warm and dry Neurologic: PERRL, EOMI, accommodation nl, no face palsy, no dysarthria, moves extremities spontaneously Psychiatric: A+Ox3, euthymic affect Discharge Data Allergies Allergy/AdvReac Type Severity Reaction Status Date / Time metformin Allergy Severe states Verified 10/21/19 20:59 drops his blood sugar very low lisinopril Allergy Intermediate Hives Verified 10/21/19 20:59 ranitidine Allergy Unknown Unknown Verified 10/21/19 20:59 losartan Allergy Hives Verified 10/21/19 20:59 tramadol Allergy HIVES Unverified 10/21/19 20:59 Consultations 10/21/19 20:16 ED Decision to Admit Stat 10/21/19 22:27 Consult Gastroenterology Routine 10/22/19 13:05 Consult General Surgery Routine Procedures Performed Operation Date: 10/23/19 11:00 Actual Procedures p Laparoscopic Cholecystectomy,(Not Applicable) - Marty Fernando DO s Liver Biopsy(Not Applicable) - Marty Fernando DO Ordered Studies 10/21/19 18:28 CT abd pelvis IV con only Stat FINDINGS: Lung bases are clear. Fatty replacement of the liver. Several gallstones are present. Kidneys enhance uniformly. No evidence for hydronephrosis. Bowel pattern is nonobstructive. The appendix is suboptimally seen L there is no evidence for an inflammatory process of the right lower quadrant. Bladder is midline. There is no free fluid within the pelvic cul-de-sac. IMPRESSION: 1. Gallstones. 2. Fatty replacement of the liver. 3. Otherwise negative study abdomen and pelvis. 10/22/19 00:39 MR MRCP Routine FINDINGS: Signal characteristics of the liver spleen and pancreas appear unremarkable. No significant peripancreatic infiltrative changes.. Kidneys enhance uniformly. No evidence for hydronephrosis. Bowel pattern is consistent obstructive. Gallbladder contains several small gallstones. There does not appear to be dilatation of the biliary or pancreatic ductal system. No significant filling defects are appreciated. IMPRESSION: 1. No evidence of pancreatitis. 2. Gallstones. 3. Normal MRCP. 4. Study is otherwise negative. Hospital Course (1) Abdominal pain: Gallstone pancreatitis -Patient presenting from home for evaluation of abdominal pain has been ongoing and worsening for the past 2 months -Review of prior labs show patient has had mildly elevated LFTs over the past few months -In the ED, AST and alk phos mildly elevated with normal total bili and ALT; l ipase mildly elevated 501 -CT ABD/pelvis showing gallstones -Given gallstones on CT ABD/pelvis, poss. Choledocholithiasis vs gallstone pancreatitis vs biliary colic -No signs of acute cholecystitis -MRCP normal -N.p.o., IVF, pain and nausea control on admission -Noted the patient is on Tradjenta (however not a new medication), that could possibly be contributing to some mild pancreatitis as well -GI consulted - pt likely passed a stone in the setting of mild gallstone pancreatitis -General surgery consulted - pt is now s/p laparoscopic cholecystectomy and liver biopsy (10/23) -pt is doing well, pain is better controlled, tolerates diet, ambulating -follow up with surgery in 2 weeks (2) DM type 2 (diabetes mellitus, type 2): -Hgb A1c 7.1 10/06/2019 -Hold oral agents and utilize NovoLog per protocol while hospitalized (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 -Continue PPI (4) Hypertension: -Hold HCTZ while receiving IVF -BP currently controlled (5) Dyslipidemia: -Hold statin due to mildly elevated LFTs Total Time Total Time Spent Total Time Spent (In Minutes): 40 Total Time Includes: Examination of the Patient, Discharge Planning, Medication Reconciliation and Communication With Other Providers Discharge Plan Discharge Items Patient Disposition: Home - Self-Care Reason For Visit: ABDOMINAL PAIN Discharge Diagnosis: Gallstone pancreatitis status post laparoscopic cholecystectomy, and fatty liver s/p liver biopsy Activity: As commented below Lifting: No more than 10 pounds Bathing: No limitations Driving/Machine Use: Resume 3 days after discharge Non-emergency contact: Surgeon Call non-emergency contact if: your pain is not controlled, you have a fever, your temperature is above 101.5 and your wound has increased redness Follow-up/Referrals: Marty Fernando, [Surgeon] - (Call to make an appt in 2 weeks) Chantal Barton MD [Primary Care Provider] - 10/30/19 11:05 am Diet: Regular Diet Comment: Avoid heavy or fried foods for next couple of days Addtl Attending Provider Instructions: Follow up with primary care provider on October 30. You need to follow-up with general surgery in 2 weeks, make sure to call for appointment. Do not take your Tradjenta for next couple of days, discuss with your primary care doctor if you should continue this medication. Pain medications were prescribed for you, however pain medications will also cause constipation. Avoid constipation, and take stool softeners such as miralax or dulcolax. For severe pain, take 1 or 2 tablets of oxycodone every 4 hours. Do not slat pickler [place] (another pain medication) from pharmacy. Pending Studies at Discharge: Yes Studies:: Liver biopsy results Stand-Alone Forms: Call Back Authorization, [facility], Smoking Cessation Medications and DC Order Prescriptions: New hydrocodone-acetaminophen [[place]] 5-325 mg tablet 1 - 2 tab PO Q4H PRN (Reason: pain, initial therapy, max 8 tabs daily) Qty: 15 RF: 0 oxycodone 5 mg capsule 5 mg PO Q4H PRN (Reason: pain) Qty: 40 RF: 0 Continued atorvastatin 10 mg tablet 10 mg PO DAILY RF: 0 glimepiride 1 mg tablet 2 mg PO DAILY RF: 0 hydrochlorothiazide 12.5 mg capsule 12.5 mg PO DAILY RF: 0 omeprazole 20 mg capsule,delayed release(DR/EC) 20 mg PO QAM RF: 0 bisacodyl [Dulcolax (bisacodyl)] 5 mg Tablet,Delayed Release (Dr/Ec) 5 mg PO DAILY PRN (Reason: Constipation) RF: 0 repaglinide 1 mg tablet 1 mg PO TIDM RF: 0 Discontinued Tradjenta 5 mg tablet 5 mg PO DAILY RF: 0 oxycodone 5 mg tablet 5 mg PO Q6H PRN (Reason: Pain) RF: 0 Discharge Orders: Discharge Order (Routine); Ordered 10/25/19 Ordered By: Augusto Stinson Admission Data Admit Date/Time: 10/22/19 14:53 Attending Provider: Augusto Stinson Admit Provider: Mayelin Vieyra I. Primary Care Provider: Chantal Barton Other Providers: Mayelin Vieyra I. ; Raphael Naidu ; Ariel Alexander ; Ramesh Yanes
--- NOTE | 2019-10-25 10:44 | Surgery Progress Note ---
Date of Service October 25, 2019 Assessment & Plan (1) Gallstones: s/p lap cholecystectomy - POD#2. Doing well. Stable for discharge from surgical standpoint. Postop instructions reviewed. Present on Admission?: Yes Subjective Doing well. tolerated diet. Still with soreness under ribcage and at umbilical site. No nausea/ vomiting. Feels ready to go home. Review of Systems Review of Systems: All systems reviewed & are unremarkable except as noted in HPI & below Physical Exam Constitutional: WD/WN, vitals as above Respiratory: normal respiratory effort, lungs clear to auscultation Cardiovascular: RRR, no murmur, no edema Gastrointestinal (Abdomen): Inspection/Auscultation: + abdomen distended (mild) and normal bowel sounds Percussion/Palpation: + abdomen tender (at incisions) and abdomen soft; no guarding incisions clean and intact Results & Data Vital Signs (Past 12 Hours) Vital Signs Temp Pulse Resp BP Pulse Ox 10/25/19 08:09 159/89 H 10/25/19 07:56 36.8 C 92 H 18 171/98 H 95 10/24/19 22:53 36.9 C 86 16 142/79 H 94
== END 2019-10-25 13:45 | disposition home or self-care (01) | DRG 419 ==
LOC: 3W 16:17 → ED 16:17 → SUATTDRO 21:25 → 3W 22:25